=== PATIENT | female | born 1960 | race Caucasian/White ===

== ENCOUNTER 2025-01-04 16:05 | Inpatient (IN) | payer BC, SELFPAY ==
[2025-01-04] VITALS (20 sets, daily range): BP systolic 118–159; BP diastolic 47–142; BMI 31.8
[2025-01-04 11:59] LABS: % Basophils 0.5 % (0-2); % Eosinophils 1.7 % (0-6); % Immature Granulocytes 0.2 % (0-0.5); % Lymphocytes 24.2 % (20.5-51.1); % Monocytes 5.7 % (1.7-9.3); % Neutrophils 67.7 % (42.2-75.2); Absolute Eosinophils 0.1 10^3/uL (0-0.7); Absolute Lymphocytes 1.5 10^3/uL (1.2-3.4); Absolute Monocytes 0.4 10^3/uL (0.1-0.6); Absolute Neutrophils 4.3 10^3/uL (1.4-6.5); Hematocrit 39.5 % (37.0-47.0); Hemoglobin 13.3 g/dL (12.0-16.0); Mean Corp Hgb Conc. 33.7 g/dL (33.0-37.0); Mean Corpuscular Hgb 30.4 pg (27.0-31.0); Mean Corpuscular Volume 90.4 fL (81.0-99.0); Mean Platelet Volume 9.6 fL (7.4-10.4); Nucleated Red Blood Cells % 0 %; Platelet Count 242 10^3/uL (130-400); Red Blood Cell Count 4.37 10^6/uL (4.20-5.40); Red Cell Dist. Width 13.3 % (11.5-14.5); White Blood Cell Count 6.4 10^3/uL (4.8-10.8)
[2025-01-04 12:17] LABS: ALT (SGPT) 22 U/L (0-35); AST (SGOT) 24 U/L (14-36); Albumin 4.6 g/dl (3.5-5.0); Alkaline Phosphatase 115 U/L (38-126); Blood Urea Nitrogen 13 mg/dl (7-17); Calcium 10.3 mg/dl (8.4-10.2); Carbon Dioxide 29 mmol/L (22-30); Chloride 102 mmol/L (98-107); Estimated Creatinine Clearance 110 ml/min; Glucose 278 mg/dl (70-99); Potassium 4.4 mmol/L (3.5-5.1); Sodium 141 mmol/L (135-145); Total Bilirubin 0.7 mg/dl (0.2-1.3); Total Protein 7.6 g/dl (6.3-8.2); eGFR > 60.00
--- NOTE | 2025-01-04 12:20 | ED.GENMED ---
History of Present Illness
General
Chief Complaint: Chest Pain
Source: patient
Exam Limitations: none
Time Seen by Provider: 01/04/25 11:44
Nursing documentation reviewed up to this point in time: agreed with
History of Present Illness
History of Present Illness:
64 yr old female presents to the ER for evaluation. Patient has a history of CAD, stent in 2016 to LAD. She reports he is followed by cardiology in [place] and intermittently since July has had some issues with being short of breath with
activity and fatigue. She had a nuclear stress test several weeks ago which was abnormal and she is scheduled for cardiac cath next week at [facility]. Today however she reports around 1030 this morning she had some burning in
discomfort in her chest and she did not feel right. She did take a total of 4 baby aspirin. She reports she came here to this ER because if she were to need to have a procedure she would want it done at this hospital. She has not been seen by
cardiology here previously.
Her administrative director is DR Malorie Vizcaino [id number].
Review of Systems
Review of Systems
Allergies reviewed?: Yes
All Other Systems: ROS reviewed and negative except as documented in HPI and ROS
Constitutional: Reports no symptoms
Respiratory: Denies trouble breathing
Cardiac: Reports chest pain; Denies diaphoresis, palpitations or syncope
ABD/GI: Reports no symptoms
: Reports no symptoms
Musculoskeletal: Reports no symptoms
Skin: Reports no symptoms
Hematologic/Lymphatic: Reports no symptoms
Psychiatric: Reports no symptoms
Phy Exam
General Physical Exam
General Presentation: no apparent distress
General age: appears stated age
General Skin: warm and dry
General Habitus: normal
General Mental: alert
General Hydration: appears well hydrated
Cardiovascular Exam
Cardiovascular Exam: regular rate/rhythm, no murmur and normal peripheral pulses
Pulmonary Exam
Pulmonary Exam: lungs clear
Neurological Exam
Neurological Exam: alert and oriented x3
[place] Coma Scale
Eye Opening: Spontaneous
Verbal Response: Oriented
Motor Response: Obeys Commands
GCS Total Score: 15
Musculoskeletal Exam
Musculoskeletal Exam: full ROM
Skin Exam
Skin Exam: normal color and warm/dry
Psychiatric Exam
Psychiatric Exam: normal mood/affect
Scores
Heart Score for Chest Pain Patients
STEMI patient?: Not applicable
Course
Orders/Labs/Results
Orders:
Orders
01/04/25 11:46
Electrocardiogram (*1) Urgent
Reason for Study: Shortness of Breath
EKG- Treatment ONCE
01/04/25 11:48
Complete Blood Count/With Diff Urgent
Comprehensive Metabolic Panel Urgent
Glycohemoglobin (HgbA1c) Urgent
Troponin I Urgent
01/04/25 14:24
Electrocardiogram (*1) Stat
Reason for Study: Other
Other Reason for Exam: chest pain
EKG- Treatment ONCE
01/04/25 14:25
Nitroglycerin Sublingual [Nitrostat (Sublingual)] 0.4 mg SL NOW STA
01/04/25 14:27
Troponin I Urgent
01/04/25 14:45
Records Request [Obtain Records] As Directed
Dates of Information to be Released: Most recent
Type of Information Requested: Last Office Visit H&P
ECG/Cardiology Results
Obtain Records from: Malorie Vizcaino MD
01/04/25 14:55
Chest [CR Chest - 2 Views ] Urgent
Comment:
Reason For Exam: cp
01/04/25 15:22
Diphenhydramine [Benadryl] 50 mg IV ONCE ONE
Hydrocortisone Sod Succinate [Solu-Cortef] 200 mg IV STAT STA
01/04/25 15:25
Aspirin Chewable [Low Strength Aspirin] 324 mg PO NOW STA
01/04/25 15:33
Add On- LAB Routine
Tests Added?: Hgba1c
01/04/25 15:52
Admit/Transfer Patient As Directed
Co-Sign Provider:
Level of Care: Observation services
Assign to:: IVU
Physician / Group: Page Camacho
Diagnosis: chest pain
Heparin 4,000 units IV NOW STA
Heparin Protocol- PTT Orders As Directed
PTT per Heparin protocol: -Obtain CBC and baseline PTT - if not already collected.
-Obtain PTT 6 hours from start of infusion. Then, every 6 hours until 2 consecutive
PTT's are therapeutic. Then, PTT Daily.
-With each rate change, obtain PTT every 6 hours until 2 consecutive PTT's are
therapeutic. Then, PTT Daily.
Notify MD As Directed
Notify physician if: PTT is greater than or equal to 200.
PRN Pain Medication Management As Directed
May give lesser potent ordered pain med per pt: Yes
preference::
Protocol:: Medication orders for pain may be administered in a
manner that supports deferring to patient preference
when the pt is:
- Requesting an ordered lesser potent pain medication.
Least to most potent pain medications are defined
as: acetaminophen < NSAID < tramadol < opioids
(morphine, oxycodone, hydromorphone).
- Requesting a lesser dose of the same medication IF
ORDERED.
- Requesting a less intrusive route of administration
if both routes are prescribed by the provider (PO <
IV).
01/04/25 15:54
Code Status As Directed
Resuscitation Status: Full Code
01/04/25 16:00
Heparin 75779 Units/250 ml 25,000 units in 250 ml IV PER PROTOCOL
Weight to be used for heparin protocol in kilograms (kg):: 91.9
Protocol:: Cardiac Tx/Acute Coronary
PTT Goal Range to be used:: PTT 73 to 111 seconds
Order type:: Initial
INITIAL Infusion Dose (UNITS/KG/hr) & then follow protocol:: 12 units/kg/hr
Infusion Dose in UNITS/hr & then follow protocol (UNITS/hr):: 1,000
INFUSION RATE in mL/hr & then follow protocol (mL/hr):: 10
PTT less than or equal to 64 seconds:: Increase rate by 200 units/hr (+ 2 mL/hr)
PTT 64.1 to 72.9 seconds:: Increase rate by 100 units/hr (+ 1 mL/hr)
PTT 73 to 111 seconds:: Target Range. No change in rate.
PTT 111.1 to 130.9 seconds:: Decrease rate by 100 units/hr (- 1 mL/hr)
PTT 131 to 199.9 seconds:: HOLD for 1 hr. Then decrease rate by 200 units/hr (- 2 mL/hr)
PTT greater than or equal to 200 seconds:: HOLD for 2 hrs & Notify Provider. Then decrease by 200 units/hr (-
2 mL/hr)
Lab follow-up:: Each change, PTT q6h until 2 consecutive are therapeutic. Then PTT
daily.
01/04/25 16:28
PTT Urgent
Comment: Obtain baseline before beginning heparin infusion if not already collected
01/04/25 19:30
Hydrocortisone Sod Succinate [Solu-Cortef] 200 mg IV ONCE ONE
01/05/25 06:00
Echo 2D MMode Color/Doppler IN AM
Reason for Study: CAD
Lipid Profile [Cardiovascular Evaluation] IN AM
01/06/25 06:00
Complete Blood Count/No Diff Q2D
Comment: Notify if platelet count is <130,000 or decreases by 50% from baseline
01/08/25 06:00
Complete Blood Count/No Diff Q2D
Comment: Notify MD if platelet count is <130,000 or decreases by 50% from baseline
01/10/25 06:00
Complete Blood Count/No Diff Q2D
Comment: Notify MD if platelet count is <130,000 or decreases by 50% from baseline
01/12/25 06:00
Complete Blood Count/No Diff Q2D
Comment: Notify MD if platelet count is <130,000 or decreases by 50% from baseline
01/14/25 06:00
Complete Blood Count/No Diff Q2D
Comment: Notify MD if platelet count is <130,000 or decreases by 50% from baseline
01/16/25 06:00
Complete Blood Count/No Diff Q2D
Comment: Notify MD if platelet count is <130,000 or decreases by 50% from baseline
01/18/25 06:00
Complete Blood Count/No Diff Q2D
Comment: Notify MD if platelet count is <130,000 or decreases by 50% from baseline
01/20/25 06:00
Complete Blood Count/No Diff Q2D
Comment: Notify MD if platelet count is <130,000 or decreases by 50% from baseline
Abnormal Lab Results
01/04/25
11:48
Glucose 278 H mg/dl
(70-99)
Calcium 10.3 H mg/dl
(8.4-10.2)
01/04/25 11:48
01/04/25 11:48
Vital Signs
Initial and Last Documented VS:
Initial Vital Signs
Temp Pulse Resp BP Pulse Ox
97.3 F 97 16 148/84 100
01/04/25 11:39 01/04/25 11:39 01/04/25 11:39 01/04/25 11:39 01/04/25 11:39
Last Documented Vital Signs
Temp Pulse Resp BP Pulse Ox
97.3 F 78 17 123/73 97
01/04/25 11:39 01/04/25 14:15 01/04/25 14:15 01/04/25 14:35 01/04/25 14:15
Curriculum Writer consulted with Physician
Curriculum Writer consulted with physician?: Yes
Name of Physician Consulted: DR Chen
MDM/Problems Addressed
Differential Diagnosis Includes:
not limited to : ACS
MDM/Problems Addressed:
As documented patient is a 64-year-old female who has cardiac disease including stent in LAD presents for chest discomfort this morning. Patient recently had an abnormal nuclear stress test last week and is scheduled for a cardiac catheterization
at [facility] next week. She came to this emergency department because she wishes to have her care here.
Patient was given 1 nitroglycerin and she complained of mild pressure and burning which did seem to relieve her symptoms.. Her cardiac troponin initially is negative no acute findings on EKG will repeat second troponin however with concerning story
and abnormal recent nuclear stress test Case was discussed with cardiology on-call, Dr. Klein will admit to hospital service . pt took her ASA 81 mg x4 SEO SPECIALIST.
Patient has a nuclear stress test which was abnormal a small sized mild degree of apical reversible perfusion defect suggestive of ischemia. There was EKG changes at 2.[address] depression with exercise stress.
1450:unchanged second EKG
1520: Pt evaluated by cardiology.
Chronic conditions affecting care:
CAD with stent
*Pulse Oximetry
Patient hypoxic: no
*EKG
Interpreted by ED Provider?: Yes
Heart Rate: 85
Rate: normal
Rhythm: sinus
Ischemia: other (repeat ekg unchanged )
*Critical Care Note
Total Time (30-74mins, 75-104mins- exclusive of procedures): Not Applicable
ED Attending Note
-
Portions of this chart may have been created with voice recognition software.� Occasional wrong word or��sound alike� substitutions may have occurred due to the inherent limitations of voice recognition software.
Discharge Plan
Departure
Patient Disposition: Admit
Date of Disposition: 01/04/25
Time of Disposition: 14:51
Admit to: Telemetry
Admit to doctor: hospitalist
Presentation/result/management discussed w/ accepting MD/DO: Hospitalist
Patient with high blood pressure during this ER visit?: Yes
Condition: Fair
Covid-19: Not Applicable
Discharge Problem:
Chest pain
Interventions
Interventions:
*Risk Screen - Suicide Last Done: 01/04/25 11:39
*General Assessment Last Done: 01/04/25 11:39
*Neglect/Abuse Screening Last Done: 01/04/25 11:39
*ED- Fall Risk Assessment Last Done: 01/04/25 11:56
*ED COVID-19 Vaccine History Last Done: 01/04/25 11:39
ED- Cardiac Assessment Last Done: 01/04/25 12:12
[2025-01-04 12:27] LABS: Troponin I 0.017 ng/ml
[2025-01-04] MEDS: NITROSTAT (SUBLINGUAL) 0.4 MG SL (14:30)
[2025-01-04 14:56] LABS: Troponin I 0.018 ng/ml
--- NOTE | 2025-01-04 15:05 | HPS.HSE ---
Family Physician
-
Family Physician: CONRADO YE
Chief Complaint
-
chest pain
History of Present Illness
Patient is a 64-year-old female with past medical history significant for CAD with stent to LAD, DM -II, hyperlipidemia, hypertriglyceridemia and myasthenia gravis who presented to [facility] ED for evaluation of midsternal chest burning with radiation
across entire chest. Patient reports sitting enjoying conversation with a friend when she had acute onset of midsternal chest burning that radiated out over entire chest she reports it was associated with the feeling that she was going to pass out.
She states the burning radiating is new and she has never experienced this before. Patient has been following with cardiology in [place] for intermittent chest discomfort for several months, she recently had a failed nuclear stress test and was scheduled
for a cardiac cath next week. Patient denies any palpitations, shortness of breath, nausea, vomiting or diaphoresis.
Medical History
Past Medical History
Past Medical History: Reports Other
Additional Past Medical History:
CAD
DM - II
hyperlipidemia
hypertriglyceridemia
myasthenia gravis
Past Surgical History: Reports Other
Additional Past Surgical History:
cardiac cath with stent to LAD
cardiac extraction
thymectomy
Social History
Tobacco: Non-smoker
Alcohol: Occasional
Drug: None
Personal: Partner
Living: With Roomate (with partner)
Employment: Retired
Family History
Family History: Other (Mother: CAD, HLD; Father: presumed from [place] (sudden in 60s on tennis court))
Allergies / Home Medications
Allergies reflects when Allergies were last updated in [facility].
Home Medications with original date entered in [facility]
Allergy/Medication List:
Allergies
Allergy/AdvReac Type Severity Reaction Status Date / Time
shellfish derived Allergy Itching Verified 01/04/25 11:55
Home Medications
aspirin 81 mg tablet,delayed release 81 mg PO DAILY 01/04/25
calcium 500 mg (as carbonate)-vitamin D3 10 mcg (400 unit) tablet (Calcium 500 + D) 1 tab PO DAILY 01/04/25
coQ10 (ubiquinol) 100 mg capsule 100 mg PO DAILY 01/04/25
icosapent ethyl 1 gram capsule (Vascepa) 2 g PO BID 01/04/25
metformin 500 mg tablet,extended release 24 hr 1,000 mg PO BID 01/04/25
naproxen sodium 220 mg tablet (Aleve) 220 mg PO [id number] PRN mild pain 01/04/25
rosuvastatin 5 mg tablet (Crestor) 5 mg PO DAILY 01/04/25
therapeutic multivitamin 1 tab PO DAILY 01/04/25
Review of Systems
-
History Source: Patient
Constitutional: Reports No Symptoms
EENT: Reports No Symptoms
Respiratory: Reports No Symptoms
Cardiac: Reports Chest Pain; Denies Syncope (sensation of near syncope )
Abdomen/GI: Reports No Symptoms
: Reports No Symptoms
Musculoskeletal: Reports No Symptoms
Skin: Reports No Symptoms
Neurological: Reports No Symptoms
Endocrine: Reports No Symptoms
Hematologic/Lymphatic: Reports No Symptoms
Psych: Reports No Symptoms
Physical Exam
Vital Signs
Vital Signs
Temp Pulse Resp BP Pulse Ox
97.3 F 78 17 123/73 97
01/04/25 11:39 01/04/25 14:15 01/04/25 14:15 01/04/25 14:35 01/04/25 14:15
Physical Exam
General: Well Developed, Well Nourished, No Apparent Distress, Comfortable, Conversant and Morbidly Obese
HEENT: NormoCephalic, Moist mucous membranes, Atraumatic, [place] Conjunctivae, Nose Appears Normal and Ears Appear Normal
Respiratory: Clear
Cardiac: S1/S2 and Regular Rhythm; No Murmur or Rub
Breast: Deferred by me
GI: Soft, Non Tender, Non Distended and Normal Bowel Sounds; No Organomegaly
Rectal: Deferred by Provider
Genito-urinary: Deferred by me
Musculoskeletal: No Clubbing, No Cyanosis and No Edema
Skin: IV/Catheter Site
Neuro: Awake, Alert, AO x 3 and Nonfocal/grossly intact
Psych: Calm and Intact Judgment/Insight
Laboratory Results
-
01/04/25 11:48
01/04/25 11:48
Laboratory Results
Total Bilirubin 0.7 mg/dl (0.2-1.3) 01/04/25 11:48
AST 24 U/L (14-36) 01/04/25 11:48
ALT 22 U/L (0-35) 01/04/25 11:48
Alkaline Phosphatase 115 U/L (38-126) 01/04/25 11:48
Troponin I 0.018 ng/ml 01/04/25 14:27
Data Reviewed
-
Medical Tests (Nuc Med, Echo, EKG etc): Report Reviewed by me (EKG: NORMAL SINUS RHYTHM WITH SINUS ARRHYTHMIA)
Lab Data: Labs Reviewed by me (Trop 0.017, 0.018)
Impression/Plan
-
IMPRESSION/PLAN:
#chest pain
Trop 0.017, 0.018
EKG: NORMAL SINUS RHYTHM WITH SINUS ARRHYTHMIA
Nuclear stress test 11/2024 with 2 mm downsloping, perfusion with small sized mild degree apical reversible perfusion defect suggestive of ischemia.
- Admit to IVU
- Consult cardiology
- plan for supervisor laboratory animal facility today
#CAD
s/p cardiac cath with stent placement LAD 07/[address] Malorie Vizcaino in [place]
#DM - II
- hold metformin
- AccuCheck AC & HS
- SSI
- check A1c
#hyperlipidemia
- continue rosuvastatin
#hypertriglyceridemia
- continue Vascepa
#myasthenia gravis
s/p thymectomy
has been in remission
Code status: full code
DVT prophylaxis: heparin gtt
--- NOTE | 2025-01-04 15:24 | CON.CAR ---
Addendum entered and electronically signed by Neli Klein MD 01/04/25 15:52:
I saw and examined the patient.
The ENVELOPE STAMPING MACHINE OPERATOR's note was reviewed and I agree with the note.
Comment: 64-year-old female (known to Dr. 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
department with a chief complaint of acute cp this am while sitting on the couch with a friend. It was described as a chest burning, midsternal anterior chest burning. It radiated throughout her body. It was intermittent since 10:30 am. She
reports no prior symptoms at the time to PCI to LAD in the past. She had an abnormal Stress test that was done for decreased exercise tolerance, sob and fatigue with plan for cath in 8 days in [place]. She takes her prescribed medication. She had se
with ozempic and cannot take, she reportss her blood sugar has been difficult to control with various medicaitons. Currently feeling better after receiving SL NTG. On exam she had a normal tomás's test on the right, rrr, no m/r/g, Lungs CTA. ECG NSR
with sinus arrhythmia. She had a trop of0.017. Symptoms c/f ACS. Will start asa and heparin. Will arrange for urgent cath today. Echo. OMT evaluation and treatment post cath as tolerated. Care of DM as per medicine.
Will follow.
Original Note:
Consultation
Consultation Request
Date/Time Consultation Requested: 01/04/2025 14:30
Date/Time Consultation Performed: 01/04/2025 15:00
Requesting Provider: PALAK Patel
Performing Provider: PALAK Shipman for Dr. Klein
Reason for Consultation: Chest pain
Medical History
-
Chief Complaint: Chest burning
History of Present Illness:
Jayleen Cruz is a 64-year-old female (known to Dr. 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
department with a chief complaint of chest burning. This morning she had midsternal anterior chest burning. It radiated throughout her body. She felt warm. She was with a friend who endorsed her pallor. She had an abnormal nuclear stress test.
This was prompted by feeling weak, fatigue, and shortness of breath while hiking in [place]. Initially, she attributed those sensations to altitude sickness but she has been feeling unwell with activity at home. She had chest discomfort in the
ER. She got full relief with 1 sublingual nitroglycerin. She had PCI to her LAD in 2015. This was found on abnormal stress testing. She had no symptoms.
Past Medical History
Past Medical History: CAD (LAD PCI 2015), Hypercholesterolemia, NIDDM and Other (Myasthenia gravis, PAD)
Past Surgical History: and Other (Thymectomy)
Social History
Tobacco: Former Smoker (socially in college)
Personal:
Living: With Family
Employment: Retired
Family History
Family History: Reviewed & Not Pertinent
Allergies / Home Medications
Allergy/AdvReac Type Severity Reaction Status Date / Time
shellfish derived Allergy Itching Verified 01/04/25 11:55
�Medication �Instructions �Recorded �Confirmed �Type
metformin 500 mg tablet,extended 500 mg PO BID 01/04/25 01/04/25 History
release 24 hr
Review of Systems
-
History Source: Patient
All other systems: Negative unless noted
Constitutional: Fatigue
EENT: No Symptoms
Respiratory: No Symptoms
Cardiac: Chest Pain
Abdomen/GI: No Symptoms
: No Symptoms
Musculoskeletal: No Symptoms
Skin: No Symptoms
Neurological: Weakness
Endocrine: No Symptoms
Hematologic/Lymphatic: No Symptoms
Physical Exam
Vital Signs
Temp Pulse Resp BP Pulse Ox
97.3 F 78 17 123/73 97
01/04/25 11:39 01/04/25 14:15 01/04/25 14:15 01/04/25 14:35 01/04/25 14:15
Lab Results
01/04/25 11:48
01/04/25 11:48
Troponin I 0.018 ng/ml 01/04/25 14:27
Physical Exam
General: Well Developed, Well Nourished, No Apparent Distress and Comfortable
HEENT: Normocephalic, Anicteric and Moist Mucous Membranes
Respiratory: Clear and Non Labored Respirations
Cardiac: S1/S2, Regular Rhythm and Peripheral Edema
Breast: Deferred by me
GI: Soft, Non Tender, Non Distended and Normal Bowel Sounds
Rectal: Deferred by Provider
Genito-urinary: No Costovertebral Tender
Musculoskeletal: No Clubbing, No Cyanosis and No Edema
Skin: Warm and Dry
Neuro: AO x 3
Hematologic/Lymphatic: No Lymphadenopathy
Psych: Calm
Impression / Plan
-
I/P: 64F with CAD, dyslipidemia, NIDDM, MG, and PAD who presented to the emergency department with a chief complaint of chest burning.
Outpatient Shotblast Operator: Dr. Malorie Vizcaino, records have been formally requested
Unstable Angina
- Nuclear stress test 11/2024 with 2 mm downsloping, perfusion with small sized mild degree apical reversible perfusion defect suggestive of ischemia.
- ASA 324 mg now, ASA 81 mg indefinitely
- Echocardiogram
- Cardiac catheterization today, pre-treatment ordered
CAD
- PCI to 90% stenosis of the mid LAD in 2015, she was asymptomatic
- Continue medical management
Dyslipidemia
- LDL 58 on rosuvastatin, increase for goal of LDL <55
Myasthenia gravis, full remission, prior thymectomy
NIDDM, outpatient HgbA1c 8.6% (08/2024), HgbA1c in a.m.
PAD, moderate plaque in the right and left lower extremities with hemodynamically significant stenosis (11/2024)
Data Reviewed
-
EKG: Report Reviewed by me (Sinus rhythm, sinus arrhythmia, rate 76)
Labs: Labs Reviewed by me
Old Records: Requested and Reviewed
[2025-01-04] MEDS: LOW STRENGTH ASPIRIN 324 MG PO (15:50)
[2025-01-04] MEDS: BENADRYL 50 MG IV (15:51)
[2025-01-04] MEDS: SOLU-CORTEF 200 MG IV (15:51)
--- NOTE | 2025-01-04 16:05 | W.PN.UPDATE ---
Update Note
Progress Note Update
This is an addendum to H&P written by Faina Morales on 01/04/2025. Patient seen and examined independently with ROBOTICS SOFTWARE ENGINEER.
64-year-old female past medical history of CAD status post stents, PAD, diabetes, hyperlipidemia, myasthenia gravis status post thymectomy, presenting with chest pain starting this morning described as burning midsternal without radiation. Has been
having intermittent episodes of chest pain associate with shortness of breath over the past month for which she was seeing data sciences director in [place]. She recently had a nuclear stress test which was abnormal and cardiac catheterization was
recommended next week.
Labs unremarkable. Glucose of 278.
Troponin 0.017. EKG shows normal sinus rhythm, sinus arrhythmia.
Chest pain improved with nitroglycerin.
Patient with likely unstable angina. N.p.o. for Posting Machine Operator later today. Aspirin and heparin drip started. A1c and lipid panel pending. Patient to be given hydrocortisone and Benadryl due to shellfish allergy prior to receiving IV contrast for
catheterization.
Trend troponins, echocardiogram pending.
Hold metformin. Insulin sliding scale started.
[2025-01-04] MEDS: HEPARIN 4000 UNITS IV (16:40)
[2025-01-04] MEDS: HEPARIN 25000 UNITS/250 ML IV (16:44)
[2025-01-04 16:48] LABS: APTT 31.4 Sec (23.4-35.0)
[2025-01-04 18:51] LABS: ACT-LR - POC 345 Seconds (116-155)
[2025-01-04 19:17] LABS: ACT-LR - POC 322 Seconds (116-155)
--- NOTE | 2025-01-04 19:59 | ITS.CL.PN ---
Branch [facility] - Procedure Note
Procedure
Procedure Note:
CARDIAC CATHETERIZATION REPORT
Date of Procedure: 01/04/2025
Referring: Dr. Neli Klein MD
Indication: NSTEMI
PROCEDURE(S)
1. left heart catheterization
2. coronary angiography
3. IVUS LAD
4. Shockwave lithotripsy LAD
5. PCI with PETROS to LAD
ACCESS: 6F right radial artery (closure: radial band)
CATHETERS
1. 6F JR4
2. 6F JL3.5
3. 6F EBU3.5 guide catheter
MODERATE SEDATION: 60 minutes of moderate sedation was utilized. An independent medical payment poster was present to assist with and help manage the patient's level of consciousness and physiologic status.
HEMODYNAMIC DATA
LV 138/8 (EDP 12) mmHg
AO 135/81 (mean 106) mmHg
CORONARY ANGIOGRAPHY
Dominance: Right
LM: Large, normal
LAD: Large vessel giving rise to a small D1 and moderate caliber D2. There is mild tubular disease in the proximal vessel leading up to a stent with mild ISR. There is a focal 95% stenosis distal to the previously placed stent.
LCx: Large vessel giving rise to a small OM1, large OM2, and 2 small LPL branches. There are trivial luminal irregularities only
RCA: Large vessel giving rise to a moderate caliber RPDA. There is very mild narrowing at the ostium with no pressure dampening and normal contrast reflux.
Shockwave lithotripsy facilitated, IVUS guided PCI with DESx1 to mid LAD
Heparin was administered to achieve ACT greater than 300. A Runthrough wire was placed in the LAD apex. Initial lesion preparation was performed with a 2.0x12 balloon with adequate expansion. IVUS was performed demonstrating a 2.75 mm distal
reference vessel, 3.5 mm reference vessel proximal to the prior stent and evidence of underexpansion due to calcium of the prior stent with MLA 3.5 mm�. The decision was made to stent both the new lesion as well as the previously stented segment to
achieve better stent expansion. A 2.75 x 34 mm [place] frontier drug-eluting stent was delivered and deployed at 16 arlet. There was noted to be underexpansion in the area of stent overlap. A 3.5.15 mm NC balloon was delivered and inflated to
high-pressure with adequate but suboptimal expansion observed angiographically. The decision was made to proceed with Shockwave lithotripsy within the under expanded previously stented segment, now with two layers of stent. A 3.5x12 mm Shockwave
lithotripsy balloon was delivered with 120 total pulses at 4 arlet to the area of stent overlap. Post dilation was then performed with the 3.5 mm NC taken to 20 arlet. Final IVUS demonstrated excellent proximal and distal distal stent sizing and no edge
dissections. There was mild underexpansion within the area of overlap stent and modestly improved MLA compared to prior. The patient experienced chest pain predictably during balloon inflations in the LAD but none at the end of the case. Radial
hemostasis was achieved with a TR band. She was loaded with 60 mg prasugrel in the [facility] and admitted for observation.
RADIATION: dose 989.65 mGy; DAP 83.8007 Gy*cm2; fluoroscopy time 16.3 min
CONCLUSIONS
1. Coronary artery disease as described with culprit 95% mid LAD stenosis and evidence of underexpansion of the previously placed stent due to calcium.
2. Normal LV filling pressure no aortic stenosis
3. Successful IVUS guided PCI of the mid LAD with Shockwave lithotripsy to treat the previously under-expanded stent segment and PETROS x 1 (2.75x34 mm postdilated to high-pressure with a 3.5 mm NC balloon sparing the distal edge)
RECOMMENDATIONS
1. DAPT with aspirin and prasugrel for at least 1 year
2. Aggressive secondary prevention of coronary artery disease.
3. Should the patient require additional interventions to her LAD, given her young age, diabetic status, and presence of two layers of stent, it may be prudent at that point to consider coronary artery bypass grafting.
Copy to: Dr. Malorie Vizcaino MD (auxiliary powerplant operator); Dr. Don Gee MD (PCP)
Signed: Raymond Moise MD, PhD
[2025-01-04] MEDS: NSS 1000 IV (20:42)
--- NOTE | 2025-01-04 21:24 | PTCARENOTE ---
Received pt from curb and gutter laborer @ 2009. AAOx3. VSS. Sequence pressures set, pulse ox on right finger. Radial band intact with 12 cc air. Right radial site clean, dry, and intact. No ecchymosis, soft to touch. Denies chest pain. EKG completed, trops drawn,
IV fluids running through right AC @ 150 mL/hr. Discussed letting air out of band, calling with any new chest pain and not getting out of bed without RN. Pt verbalized understanding. Call montano within reach.
[2025-01-04 21:56] LABS: Troponin I < 0.012 ng/ml
[2025-01-04 22:18] LABS: Glucose - Point of Care 399 mg/dl (70-99)
[2025-01-04] MEDS: NOVOLOG FLEXPEN-LOW RESISTANCE 5 UNITS SC (23:13)
[2025-01-05 03:32] VITALS: BP 128/72
[2025-01-05 03:50] VITALS: BMI 30.6
[2025-01-05 03:58] LABS: Hematocrit 34.3 % (37.0-47.0); Hemoglobin 11.7 g/dL (12.0-16.0); Mean Corp Hgb Conc. 34.1 g/dL (33.0-37.0); Mean Corpuscular Hgb 30.1 pg (27.0-31.0); Mean Corpuscular Volume 88.2 fL (81.0-99.0); Mean Platelet Volume 9.3 fL (7.4-10.4); Platelet Count 238 10^3/uL (130-400); Red Blood Cell Count 3.89 10^6/uL (4.20-5.40); Red Cell Dist. Width 13.4 % (11.5-14.5); White Blood Cell Count 7.2 10^3/uL (4.8-10.8)
[2025-01-05 04:15] LABS: Blood Urea Nitrogen 17 mg/dl (7-17); Calcium 9.2 mg/dl (8.4-10.2); Carbon Dioxide 24 mmol/L (22-30); Chloride 108 mmol/L (98-107); Estimated Creatinine Clearance 108 ml/min; Glucose 166 mg/dl (70-99); HDL Cholesterol 76 mg/dl; LDL Cholesterol, Calculated 33 mg/dl; Potassium 4.4 mmol/L (3.5-5.1); Sodium 140 mmol/L (135-145); Total Cholesterol 130 mg/dl (50-199); Triglyceride 109 mg/dl (10-149); Very Low Density Lipoprotein 21 mg/dl (0-30); eGFR > 60.00
[2025-01-05 07:36] VITALS: BP 136/61
[2025-01-05 07:39] LABS: Glucose - Point of Care 152 mg/dl (70-99)
[2025-01-05] MEDS: FLUSH (NSS) 1 FLUSH IV (08:33)
[2025-01-05] MEDS: OSCAL 500 + D 500 MG PO (08:33)
[2025-01-05] MEDS: CRESTOR 20 MG PO (08:33)
[2025-01-05] MEDS: LOW STRENGTH ASPIRIN 81 MG PO (08:33)
[2025-01-05] MEDS: THERAGRAN 1 TABLET PO (08:33)
[2025-01-05 09:19] LABS: Glycohemoglobin (HgbA1c) 7.7 % (4.0-5.6)
[2025-01-05] MEDS: NOVOLOG FLEXPEN-LOW RESISTANCE 1 UNITS SC ×2 (09:20→12:47)
--- NOTE | 2025-01-05 09:41 | W.PN.CD ---
Addendum entered and electronically signed by Garrick Key DO 01/05/25 11:34:
Correction - DAPT with aspirin and prasugrel x 12 months, followed by aspirin indefinitely.
Original Note:
Today's Communication / Plan
-
Echocardiogram.
Restart metformin.
Discharge planning.
Impression / Plan
-
Impression/Plan: 64F with CAD, dyslipidemia, NIDDM, MG, and PAD admitted with unstable angina.
#Unstable Angina/CAD
-Acute.
-Nuclear stress test 11/20[address] segments, perfusion with small sized mild degree apical reversible perfusion defect suggestive of ischemia.
-S/P IVUS guided PCI to 95% focal LAD stenosis and underexpanded prior LAD stent ([employer] Grethel Guadalupe 2.75 x 34 PETROS) with post hoc intracoronary lithotripsy (Shockwave 3.5 x 12 IVL balloon).
-DAPT with aspirin and ticagrelor for at least 12 months, followed by aspirin indefinitely.
-Rosuvastatin increased to 20 mg daily.
-Echocardiogram pending.
#Dyslipidemia
-Chronic, stable.
-Total cholesterol = 130, LDL = 33, HDL = 76, Triglycerides = 109
-Rosuvastatin increased to 20 mg daily given ACS.
-Restart icosapent ethyl at discharge.
#Myasthenia gravis
-Chronic, full remission.
-Prior thymectomy.
#NIDDM
-Chronic, uncontrolled.
-HgbA1c 7.7%.
-Restart metformin.
#PAD
-Chronic, stable.
-Moderate plaque in the right and left lower extremities with hemodynamically significant stenosis (11/2024).
-Statin.
#Dispo
-IVU status.
-Full code.
-Discharge planning pending echo results.
Outpatient Software Developer Manager: Dr. Malorie Vizcaino, records have been formally requested.
Subjective/Interval History:
Cardiac catheterization/PCI yesterday.
BP is mildly elevated.
She feels well.
DATA:
Cardiac Catheterization/PCI, 01/04/2025:
CORONARY ANGIOGRAPHY
Dominance: Right
LM: Large, normal
LAD: Large vessel giving rise to a small D1 and moderate caliber D2. There is mild tubular disease in the proximal vessel leading up to a stent with mild ISR. There is a focal 95% stenosis distal to the previously placed stent.
LCx: Large vessel giving rise to a small OM1, large OM2, and 2 small LPL branches. There are trivial luminal irregularities only.
RCA: Large vessel giving rise to a moderate caliber RPDA. There is very mild narrowing at the ostium with no pressure dampening and normal contrast reflux.
CONCLUSIONS
1. Coronary artery disease as described with culprit 95% mid LAD stenosis and evidence of underexpansion of the previously placed stent due to calcium.
2. Normal LV filling pressure no aortic stenosis.
3. Successful IVUS guided PCI of the mid LAD with Shockwave lithotripsy to treat the previously under-expanded stent segment and PETROS x 1 (2.75x34 mm postdilated to high-pressure with a 3.5 mm NC balloon sparing the distal edge).
Physical Exam
Vital Signs/Labs
Vital Signs
Temp Pulse Resp BP Pulse Ox
36.8 C 75 18 136/61 98
01/05/25 07:46 01/05/25 09:15 01/05/25 07:46 01/05/25 07:36 01/05/25 09:13
01/03/25 01/04/25 01/05/25
11:59 11:59 11:59
Actual Weight 88.4 kg
01/05/25 03:36
01/05/25 03:36
APTT Cancelled 01/04/25 22:45
Triglycerides 109 mg/dl (10-149) 01/05/25 03:36
LDL Cholesterol, Calc 33 mg/dl 01/05/25 03:36
VLDL Cholesterol, Calc 21 mg/dl (0-30) 01/05/25 03:36
HDL Cholesterol 76 mg/dl 01/05/25 03:36
LAB Results
01/04/25 01/04/25 01/04/25
11:48 14:27 20:07
Troponin I 0.017 0.018 Cancelled
01/04/25 01/04/25 01/05/25
20:37 23:07 02:00
Troponin I < 0.012 D Cancelled Cancelled
01/05/25
08:00
Troponin I Cancelled
Physical Exam
Constitutional: No acute distress and Comfortable
EENT: Anicteric and Moist mucous membranes
Cardiovascular: Rhythm & rate is regular, Pedal edema is absent, JVD pressure is normal, S1S2 is normal and Murmur/rub/gallop absent
Respiratory: Respiratory effort normal, Lungs clear to auscul., Wheeze Absent, Crackles Absent and Rhonchi Absent
GI: Soft, Distention absent, Flat, Non tender and Normal bowel sounds
Neuro/Psych: AO x 3
Data Reviewed
-
Date of Service: January 05, 2025
Medical Decision Making: Reviewed Test Results, Independent Historian Assessment and Test Interpretation
EKG: Tracing Personally Visualized and interpreted and Report Reviewed by me
Echo: Ordered by me
X-Ray/CT/US/MRI/NUC/PET: Image Personally Visualized and interpreted and Report Reviewed by me
Medical Tests (PFT, Pathology etc): Image Personally Visualized and interpreted, Report Reviewed by me, Discussed with Patient and Discussed with Family
Labs: Labs Reviewed by me
--- NOTE | 2025-01-05 09:52 | PTCARENOTE ---
Received pt at change of shift in AM. pt laying in bed, denies chest pain or SOB. NSR in the 70s on the monitor. Right radial site dry and intact. Educated pt on not pushing up with that right arm. Verbalized understanding. Pt ambulating in room ad
gabriel. Call montano within reach.
[2025-01-05] MEDS: EFFIENT 10 MG PO (10:09)
--- NOTE | 2025-01-05 11:02 | CM ---
Pricing on Effient through the patient's [employer], ID# [id number], is non preferred. Prasugrel is covered under the plan at $5 a month.
--- NOTE | 2025-01-05 11:52 | W.PN.HOSP.TC ---
Addendum entered and electronically signed by Louie Mehta MD 01/05/25 14:57:
Discussed with Dr. Key echo normal okay for discharge.
More than 30 minutes spent in discharge including
Final examination of the patient
Summarizing hospital stay
Instructions for continuing care to all relevant caregivers
Preparation of discharge records, prescriptions, and referral forms
Total time spent (in minutes): 45
Original Note:
Today's Communication/Plan
-
DAPT
ECHO
Cards recs
start dispo
Assessment / Plan
Assessment / Plan
Unstable angina
CAD
Status post cardiac catheterization with PETROS to LAD
Status post heparin therapy
Started on aspirin and prasugrel
Continue with statin
Restart metformin per cardiology
Echocardiogram is pending
#DM - II
- Restart metformin
- AccuCheck AC & HS
- SSI
- check A1c at 7.7. Per patient is downtrending and due to see area forester as outpatient
#hyperlipidemia
- continue rosuvastatin
#hypertriglyceridemia
- continue Vascepa
#myasthenia gravis
s/p thymectomy
has been in remission
#PAD
-on statin/DAPT already
Code status: full code
Anticipated Discharge: Today
Subjective/Interval History
-
Date of Service: January 05, 2025
Undergoing ECHO
denies chest pain but states of chest burning -significant improvement since yesterday
Objective Data
-
Labs:
Laboratory Results
01/05/25
03:36
WBC 7.2
Hgb 11.7 L
Hct 34.3 L
Plt Count 238
Sodium 140
Potassium 4.4
Chloride 108 H
Carbon Dioxide 24
BUN 17
Creatinine 0.6
Glucose 166 H
Calcium 9.2
Vital Signs:
Vital Signs
Temp Pulse Resp BP Pulse Ox
98.2 F 79 18 136/61 98
01/05/25 07:46 01/05/25 11:45 01/05/25 07:46 01/05/25 07:36 01/05/25 09:13
Physical Exam
-
General: Well Developed and No Apparent Distress
HEENT: Normocephalic, Atraumatic and Moist Mucous Membranes
Respiratory: Non Labored Respirations; Negative Accessory Resp Muscle Use
Cardiac: Regular Rhythm; Negative Murmur, Rub or Gallop
GI: Nondistended; Negative Organomegaly
Rectal: Deferred by Provider
Musculoskeletal: No Edema
Skin: Negative Rash
Neuro: Awake, Alert, Oriented, AO x 3, No Motor Deficits and Nonfocal/Grossly Intact
Psych: Calm
--- NOTE | 2025-01-05 11:56 | CM ---
Chart reviewed. Patient is independent of ADLS, lives with her SO in a 2 [address], 3 ROC[facility]O, 0 DME. Plan is for the patient to return home. CM to follow
[2025-01-05 12:09] VITALS: BP 134/77
[2025-01-05 12:45] LABS: Glucose - Point of Care 185 mg/dl (70-99)
--- NOTE | 2025-01-05 14:56 | W.DCSUMMARY ---
Discharge Summary
Discharge Data
Date of Admission: 01/04/25
Date of Discharge: 01/05/25
-
Pending Results: No
Hospital Course
64 female past medical history of hyperlipidemia, synovitis, hypertriglyceridemia, CAD who is presented with chest pain. Patient was found to unstable angina. Patient was started on heparin infusion. Patient was seen cardiology and underwent
cardiac catheterization on admission day. Patient underwent PETROS to LAD. Patient was statin dose was increased. Aspirin was continued and prasugrel was added. Dual antiplatelet agents for 12 months minimum. Per cardiology okay to restart
metformin. Discussed with Dr. Garrick Key echocardiogram with normal and patient can be discharged. Patient with to follow-up outpatient with primary doctor and cardiology.
Discharge Plan
-
Patient Disposition: Home (Routine Discharge)
Discharge Diagnosis/Procedures: Unstable angina status post cardiac catheterization with PETROS to LAD
Condition: Fair
Diet: Low Cholesterol
Driving Restrictions: No driving for 24 hours
Activity Restrictions/Additional Instructions:
DAPT with aspirin and Prasugrel for at least 12 months, followed by aspirin indefinitely.
Referrals:
[facility] [Other] - in less than 1 week
[facility] [Outside] - 02/01/25 1:00 pm
(Cardiac Rehab Orientation appointment is on Saturday February 01, 2025 @ 1:00pm
The Cardiac Rehab gym is located on the first floor of the [facility].)
Additional Discharge Medication Instructions: Crestor dose has been increased to 20mg from 5mg daily.
Prescriptions:
New
rosuvastatin 20 mg Tablet
20 mg PO DAILY 30 Days Qty: 30 0RF
prasugrel HCl 10 mg Tablet
10 mg PO DAILY Qty: 30 0RF
Continued
metformin 500 mg Tablet Extended Release 24 Hr
1,000 mg PO BID
therapeutic multivitamin Tablet
1 tab PO DAILY
aspirin 81 mg Tablet,Delayed Release (Dr/Ec)
81 mg PO DAILY
calcium carbonate-vitamin D3 [Calcium 500 + D] 500 mg-10 mcg (400 unit) Tablet
1 tab PO DAILY
coQ10 (ubiquinol) 100 mg Capsule
100 mg PO DAILY
icosapent ethyl [Vascepa] 1 gram Capsule
2 g PO BID
Discontinued
naproxen sodium [Aleve] 220 mg Tablet
220 mg PO [id number] PRN (Reason: mild pain)
rosuvastatin [Crestor] 5 mg Tablet
5 mg PO DAILY
Discharge Orders:
Discharge Patient (As Directed); Ordered 01/05/25
Ordered By: Louie Mehta
Care Plan Goals
Care Plan Goals:
Problem: Readiness for enhanced knowledge related to diagnosis and treatment plan
Goal: Understand your diagnosis and treatment plan needs, including medications if applicable.
Instructions: Know your diagnosis, underlying causes and treatment plan options, including medications if applicable. Consult with your health care team to learn about your diagnosis and treatment plan, including medications if applicable.
Discharge Date and Time
Discharge Date/Time: 01/05/25 16:00
Print Language: PARAGUAYAN
[2025-01-05 15:41] VITALS: BP 147/77
--- NOTE | 2025-01-05 15:59 | PTCARENOTE ---
Discharge instructions reviewed w/ pt and spouse and verbalizes understanding. IV and tele removed. Belongings collected and sent home w/ pt. Escorted via WC and staff assist to home. Discharged to home.
== END 2025-01-05 16:00 | disposition home or self-care (01) | DRG 324 ==
LOC: IVU 16:05
PROVIDERS: Nurse Practitioner; Nurse Practitioner Gerontology; Student in an Organized Health Care Education/Training Program; ADMITTING PHYSICIAN Hospitalist; ATTENDING PHYSICIAN Hospitalist; CONSULT PHYSICIAN Internal Medicine Cardiovascular Disease; EMERGENCY PHYSICIAN Emergency Medicine
PROC: B2111ZZ Fluoroscopy of Multiple Coronary Arteries using Low Osmolar Contrast (ICD-10-PCS; 2025-01-04)
PROC: 027034Z Dilation of Coronary Artery, One Artery with Drug-eluting Intraluminal Device, Percutaneous Approach (ICD-10-PCS; 2025-01-04)
PROC: B240ZZ3 Ultrasonography of Single Coronary Artery, Intravascular (ICD-10-PCS; 2025-01-04)
PROC: 02F03ZZ Fragmentation in Coronary Artery, One Artery, Percutaneous Approach (ICD-10-PCS; 2025-01-04)
PROC: 4A023N7 Measurement of Cardiac Sampling and Pressure, Left Heart, Percutaneous Approach (ICD-10-PCS; 2025-01-04)
DX: I25.110 Atherosclerotic heart disease of native coronary artery with unstable angina pectoris (principal); R03.0 Elevated blood-pressure reading, without diagnosis of hypertension; E11.9 Type 2 diabetes mellitus without complications; E78.00 Pure hypercholesterolemia, unspecified; E78.1 Pure hyperglyceridemia; G70.00 Myasthenia gravis without (acute) exacerbation; I73.9 Peripheral vascular disease, unspecified; R23.1 Pallor; Z87.891 Personal history of nicotine dependence; Z91.013 Allergy to seafood; Z79.84 Long term (current) use of oral hypoglycemic drugs; Z95.5 Presence of coronary angioplasty implant and graft; Z82.49 Family history of ischemic heart disease and other diseases of the circulatory system; Z82.41 Family history of sudden cardiac death; Z79.82 Long term (current) use of aspirin
CPT/HCPCS: 71046; 80048; 80053; 80061; 82962; 83036; 84484; 85025; 85027; 85347; 85730; 92972; 92978; 93005; 93306; 93458; 96374; 96375; 96376; 99152; 99153; 99285; C1725; C1753; C1761; C1874; C1894; C9600; Q9967

== ENCOUNTER 2025-04-30 20:03 | Inpatient (IN) | payer BC, SELFPAY ==
[2025-04-30] VITALS (35 sets, daily range): BP systolic 115–182; BP diastolic 61–151; BMI 29.3; BMI 28.5
[2025-04-30 17:23] LABS: Hematocrit 36.9 % (37.0-47.0); Hemoglobin 12.5 g/dL (12.0-16.0); Mean Corp Hgb Conc. 33.9 g/dL (33.0-37.0); Mean Corpuscular Volume 85.8 fL (81.0-99.0); Nucleated Red Blood Cells % 0 %; Platelet Count 261 10^3/uL (130-400); Red Cell Dist. Width 13.8 % (11.5-14.5)
[2025-04-30 17:40] LABS: ALT (SGPT) 17 U/L (0-35); AST (SGOT) 23 U/L (14-36); Albumin 4.5 g/dl (3.5-5.0); Alkaline Phosphatase 84 U/L (38-126); Blood Urea Nitrogen 25 mg/dl (7-17); Calcium 9.8 mg/dl (8.4-10.2); Carbon Dioxide 26 mmol/L (22-30); Chloride 109 mmol/L (98-107); Glucose 124 mg/dl (70-99); Magnesium 1.9 mg/dl (1.6-2.3); Potassium 4.0 mmol/L (3.5-5.1); Sodium 143 mmol/L (135-145); Total Protein 7.2 g/dl (6.3-8.2); eGFR > 60.00
[2025-04-30] MEDS: NSS 500 IV (17:56)
[2025-04-30 17:57] LABS: Troponin I 0.470 ng/ml
[2025-04-30] MEDS: NITROSTAT (SUBLINGUAL) 0.4 MG SL (17:57)
--- NOTE | 2025-04-30 18:15 | ED.GENMED ---
History of Present Illness
General
Chief Complaint: Chest Pain
Source: patient and spouse
Time Seen by Provider: 04/30/25 17:01
History of Present Illness
History of Present Illness:
Note:
CHIEF COMPLAINT(S)
Chest pain and arm pain worsened by exertion, relieved by nitroglycerin use.
HISTORY OF PRESENT ILLNESS
The patient is a 64-year-old female with a history of cardiac catheterization performed in December. Following the procedure, the patient felt well and went on a [id number]-week trip to [place], during which she was able to walk eight miles a day in
high temperatures without issue. However, approximately two weeks ago during a stay in [place], she experienced severe, unprecedented chest pain while attempting to ascend a hill. Since that episode, the patient has reported persistent chest
pain both during physical activity and at rest. She has been using nitroglycerin, previously prescribed during cardiac rehabilitation for an incident deemed angina, twice daily with partial relief. The nitroglycerin resolves the symptoms
temporarily, though they recur shortly after.
She describes the current chest pain as low-grade but notes that exertion induces more intense pain, radiating to her arms and occasionally her jaw. Currently, she is experiencing low-level, constant chest pain with no acute exacerbation. Her
cardiology team at an outside Cardiology group advised her to seek care at this facility. She relays that previous catheterization noted a potential need for bypass or further stent intervention due to lesions in the left anterior descending artery
(LAD).
ADDITIONAL HISTORY OBTAINED FROM SOURCES OTHER THAN THE PATIENT
Per the patients son-in-law, a cardiac nurse, the patients use of nitroglycerin has become more frequent, indicating escalating symptoms.
CHRONIC MEDICAL CONDITIONS SIGNIFICANTLY AFFECTING CARE
The patient has a history of diabetes and coronary artery disease, with medication management including aspirin and clopidogrel.
PLAN
1. Repeat cardiac enzyme levels due to persistent chest pain to assess for potential acute coronary syndrome.
2. Review previous catheterization report in detail and contact the cardiology team for collaboration on further management.
3. Consider repeating electrocardiograms to monitor for changes from baseline or any acute ischemic indications.
4. Develop a comprehensive cardiac care plan in alignment with her symptoms, risk factors, and cardiology consultation findings.
DIFFERENTIAL DIAGNOSIS
The Differential Diagnosis includes, in no particular order and is not limited to:
1. Unstable angina
2. Myocardial infarction
3. Coronary artery spasm
4. Gastroesophageal reflux disease (GERD)
5. Musculoskeletal chest pain
6. Pulmonary embolism
7. Pericarditis
8. Costochondritis
9. Anxiety-induced chest pain
10. Non-cardiac chest pain
MEDICATIONS
The patient reports taking aspirin, clopidogrel (Plavix), and metformin for diabetes.
REVIEW OF SYSTEMS
- Cardiovascular: Chest pain exacerbated by exertion, radiating to arms and jaw.
- Musculoskeletal: Pain radiating to both arms.
- Neurological: Occasionally experiences jaw pain during episodes of cardiac-type pain.
PHYSICAL EXAM
General: Alert, no acute distress.
Skin: Warm, dry.
Head: Normocephalic, atraumatic.
Neck: Supple, trachea midline.
Eye, Ear, Nose, and Throat: Oral mucosa moist.
Cardiovascular: Normal peripheral perfusion, No edema.
Respiratory: Respirations are non-labored.
Gastrointestinal: Abdomen nondistended.
Back: Normal range of motion, Normal alignment.
Musculoskeletal: Normal range of motion, normal strength.
Neurological: Alert and oriented to person, place, time, and situation, No focal neurological deficit observed.
Psychiatric: Cooperative, appropriate mood & affect.
CARE-UPDATE
04/30/25 - 17:57
The patient previously had a cardiac catheterization in December 2024, which revealed stenosis in the left anterior descending (LAD) artery.
CARE-UPDATE
04/30/25 - 17:58
Troponin level is elevated to 0.4, prompting concern for acute coronary syndrome due to persistent chest pain. Repeat EKG reveals T-wave inversion and anterior changes.
CARE-UPDATE
04/30/25 - 18:14
Patients chest pain resolved after administration of sublingual nitroglycerin. Initiated nitroglycerin drip and heparin drip for continued management.
Disposition:
SUMMARY OF ENCOUNTER
The patient, with a known difficult lesion in the left anterior descending (LAD) artery as confirmed from an [facility] cardiac catheterization, presented to the emergency department with progressively worsening chest pain. Although the chest pain
resolved while in the emergency room, electrocardiograms (EKGs) showed concerning T-wave inversions. A troponin level of 0.47 ng/mL suggested non-ST segment elevation myocardial infarction (NSTEMI). The case was reviewed with Dr. Valdez from
cardiology, who recommended continuation of intravenous nitroglycerin for pain relief and admission for further management. Also initiate IV heparin
DISPOSITION
Admit
ASSESSMENT
Acute coronary syndrome, specifically NSTEMI related to challenging LAD lesions.
EMERGENCY TREATMENTS ADMINISTERED
Administration of IV nitroglycerin and IV heparin
MANAGEMENT OF THE PATIENTS CARE WAS DISCUSSED WITH
Dr. Valdez from cardiology.
PLAN
Continue IV nitroglycerin and IV heparin, admit for further cardiology evaluation and treatment planning.
INDEPENDENT REVIEW OF LABS AND INTERPRETATION OF TESTS
- My independent review of cardiac enzymes is that the troponin level was 0.47 ng/mL, indicative of myocardial injury in the setting of a possible NSTEMI.
ADDITIONAL TESTING AND IMAGING CONSIDERED
Repeat EKGs considered to monitor for changes in T-wave inversions.
MEDICATION RECONCILIATION
Initiation of intravenous heparin therapy was done. In addition, intravenous nitroglycerin was commenced.
MEDICAL DECISION MAKING
- Number and Complexity of Problems Addressed: Chronic conditions affecting care: History of coronary artery disease, LAD lesion.
Differential Diagnosis: Unstable angina, NSTEMI, coronary artery spasm, and other conditions as listed previously.
- Data:
Category 1: Repeat EKGs reviewed showing T-wave inversions.
Category 2: Clinical information obtained from the son-in-law, who is a cardiac nurse, indicating increased frequency of nitroglycerin usage.
Category 3: Management discussed with Dr. Dean from cardiology.
- Risk: Admission was considered necessary due to the elevated troponin levels and EKG changes suggesting active and potentially unstable coronary artery disease, necessitating further evaluation and management.
DIAGNOSIS
1. Non-ST Elevation Myocardial Infarction (NSTEMI) - I21.4
2. Coronary artery disease - I25.10
Phy Exam
Physical Exam
Physical Exam:
.
Scores
Heart Score for Chest Pain Patients
STEMI patient?: No
History: Highly Suspicious
ECG: Nonspecific Repolarization
Age: >45 - <65 years
Risk Factors: >/= 3 Risk Factors or History of CAD
Troponin: >/= 3 x Normal Limit
Heart Score for Chest Pain Patients: 8
Heart Score Risk: 72.7 % MACE over next 6 weeks
Course
Orders/Labs/Results
Orders:
Orders
04/30/25 Dinner
2000 calorie (17 carb) Diabetic
At Your Request: Full Participation
04/30/25 15:46
Electrocardiogram (*1) Urgent
Reason for Study: Chest Pain
EKG- Treatment ONCE
04/30/25 17:18
Complete Blood Count/With Diff Urgent
Comprehensive Metabolic Panel Urgent
Magnesium Urgent
Troponin I Urgent
04/30/25 17:52
0.9% Sodium Chloride 500 ml [Nss] 500 ml IV BOLUS
Nitroglycerin Sublingual [Nitrostat (Sublingual)] 0.4 mg SL NOW STA
04/30/25 17:53
Nitroglycerin Sublingual [Nitrostat (Sublingual)] 0.4 mg SL [id number] PRN
04/30/25 18:06
Nitroglycerin 100 mg/250 ml [Nitroglycerin Premix] 100 mg in 250 ml IV NOW
Initial dose in mcg/min, then titrate:: 5
Titrate to keep:: SBP < 160 mmHg
Titrate by mcg/min:: 5 mcg/min, may increase by 10 mcg/min if dose > 20 mcg/min
Frequency of titrations (minutes):: every 3-5 minutes
Maximum dose in mcg/min:: 200
Begin to taper infusion when:: Remained at goal for 2hrs
Taper by mcg/min:: 5 mcg/min
Frequency of taper (minutes) if patient maintains goal:: 30
Taper to off?: Yes
If infusion off & no longer maintaining goal:: Contact Provider
04/30/25 18:12
CR Chest Portable - 1 View Urgent
Comment:
Reason For Exam: cp
Reason Study Needs to be Portable: Patient Unstable
04/30/25 18:19
Heparin 4,000 units IV NOW STA
Nursing to Place Non Medication Order As Directed
Physician Order: PTT 6 hours after initial start of Heparin infusion
Above order entered?: Yes
04/30/25 18:30
Heparin 82714 Units/250 ml 25,000 units in 250 ml IV PER PROTOCOL
Weight to be used for heparin protocol in kilograms (kg):: 84.7
Protocol:: Cardiac Tx/Acute Coronary
PTT Goal Range to be used:: PTT 73 to 111 seconds
Order type:: Initial
INITIAL Infusion Dose (UNITS/KG/hr) & then follow protocol:: 12 units/kg/hr
Infusion Dose in UNITS/hr & then follow protocol (UNITS/hr):: 1,000
INFUSION RATE in mL/hr & then follow protocol (mL/hr):: 10
PTT less than or equal to 64 seconds:: Increase rate by 200 units/hr (+ 2 mL/hr)
PTT 64.1 to 72.9 seconds:: Increase rate by 100 units/hr (+ 1 mL/hr)
PTT 73 to 111 seconds:: Target Range. No change in rate.
PTT 111.1 to 130.9 seconds:: Decrease rate by 100 units/hr (- 1 mL/hr)
PTT 131 to 199.9 seconds:: HOLD for 1 hr. Then decrease rate by 200 units/hr (- 2 mL/hr)
PTT greater than or equal to 200 seconds:: HOLD for 2 hrs & Notify Provider. Then decrease by 200 units/hr (-
2 mL/hr)
Lab follow-up:: Each change, PTT q6h until 2 consecutive are therapeutic. Then PTT
daily.
04/30/25 18:31
PTT Urgent
Comment: Obtain baseline before beginning heparin infusion if not already collected
04/30/25 19:38
Electrocardiogram (*1) Urgent
Reason for Study: Hypertension, Benign
EKG- Treatment ONCE
04/30/25 19:45
Admit/Transfer Patient As Directed
Co-Sign Provider:
Level of Care: Inpatient admission
Assign to:: IVU
Physician / Group: Dominique
Diagnosis: NSTEMI
Reason for Hospitalization: NSTEMI
Expected length of stay greater than two midnights?: Yes
ELOS- Estimated Length of Stay in days: 3
I certify the patient meets the requirements for IP care: Yes
PRN Pain Medication Management As Directed
May give lesser potent ordered pain med per pt: Yes
preference::
Protocol:: Medication orders for pain may be administered in a
manner that supports deferring to patient preference
when the pt is:
- Requesting an ordered lesser potent pain medication.
Least to most potent pain medications are defined
as: acetaminophen < NSAID < tramadol < opioids
(morphine, oxycodone, hydromorphone).
- Requesting a lesser dose of the same medication IF
ORDERED.
- Requesting a less intrusive route of administration
if both routes are prescribed by the provider (PO <
IV).
04/30/25 19:51
Code Status As Directed
Resuscitation Status: Full Code
04/30/25 20:38
Troponin I Q6H
08/02/25 21:28
Acetaminophen [Tylenol] 650 mg PO Q4HPRN PRN
Dextrose 50%-Water [Dextrose 50% Syringe] 12.5 grams IV [id number] PRN
Glucagon [GlucaGen] 1 mg IM PRN PRN
04/30/25 21:28
CARDIOLOGY CONSULT Routine
Consulting Provider: Roshan Valdez
Was physician already notified: Yes
Heparin Protocol- PTT Orders As Directed
PTT per Heparin protocol: -Obtain CBC and baseline PTT - if not already collected.
-Obtain PTT 6 hours from start of infusion. Then, every 6 hours until 2 consecutive
PTT's are therapeutic. Then, PTT Daily.
-With each rate change, obtain PTT every 6 hours until 2 consecutive PTT's are
therapeutic. Then, PTT Daily.
Activity As Directed
Activity Level: Out of Bed- Chair
Bedside Glucose Monitoring As Directed
Frequency: AC&HS
Additional Instructions:: Change to q6h if pt on TPN, tube feeding or not eating
I&O [Intake/ Output] As Directed
Frequency: q12h
Notify MD As Directed
Notify physician if: PTT is greater than or equal to 200.
Vital Signs As Directed
Frequency: Per unit guidelines
Weight As Directed
Frequency: Daily
05/01/25 00:47
PTT Urgent
05/01/25 03:00
Troponin I Q6H
05/01/25 06:00
Basic Metabolic Panel IN AM
Complete Blood Count/No Diff IN AM
Glycohemoglobin (HgbA1c) IN AM
Lipid Profile [Cardiovascular Evaluation] IN AM
Magnesium IN AM
05/01/25 07:30
Insulin Aspart Corrective Low [Novolog Flexpen-Low Resistance] See Protocol SC AC
05/01/25 08:00
Aspirin Low Dose EC [Aspir Low (Enteric Coated)] 81 mg PO DAILY
Dapagliflozin [Farxiga] 10 mg PO DAILY
Prasugrel Hydrochloride [Effient] 10 mg PO DAILY
Rosuvastatin Calcium [Crestor] 20 mg PO DAILY
05/01/25 09:00
Troponin I Q6H
05/02/25 06:00
Complete Blood Count/No Diff Q2D
Comment: notify provider: Platelet count < 130,000 or decrease by 50% from baseline
05/04/25 06:00
Complete Blood Count/No Diff Q2D
Comment: notify provider: Platelet count < 130,000 or decrease by 50% from baseline
05/06/25 06:00
Complete Blood Count/No Diff Q2D
Comment: notify provider: Platelet count < 130,000 or decrease by 50% from baseline
05/08/25 06:00
Complete Blood Count/No Diff Q2D
Comment: notify provider: Platelet count < 130,000 or decrease by 50% from baseline
05/10/25 06:00
Complete Blood Count/No Diff Q2D
Comment: notify provider: Platelet count < 130,000 or decrease by 50% from baseline
05/12/25 06:00
Complete Blood Count/No Diff Q2D
Comment: notify provider: Platelet count < 130,000 or decrease by 50% from baseline
05/14/25 06:00
Complete Blood Count/No Diff Q2D
Comment: notify provider: Platelet count < 130,000 or decrease by 50% from baseline
05/16/25 06:00
Complete Blood Count/No Diff Q2D
Comment: notify provider: Platelet count < 130,000 or decrease by 50% from baseline
Abnormal Lab Results
04/30/25
17:18
Hct 36.9 L %
(37.0-47.0)
Absolute Lymphs (auto) 1.1 L 10^3/uL
(1.2-3.4)
Chloride 109 H mmol/L
(98-107)
BUN 25 H mg/dl
(7-17)
Glucose 124 H mg/dl
(70-99)
Troponin I 0.470 H* ng/ml
04/30/25 17:18
04/30/25 17:18
Vital Signs
Initial and Last Documented VS:
Initial Vital Signs
Temp Pulse Resp BP Pulse Ox
98.4 F 86 18 182/151 99
04/30/25 15:51 04/30/25 15:51 04/30/25 15:51 04/30/25 15:51 04/30/25 15:51
Last Documented Vital Signs
Temp Pulse Resp BP Pulse Ox
98.4 F 99 15 122/64 93
04/30/25 15:51 04/30/25 21:45 04/30/25 21:15 04/30/25 21:33 04/30/25 21:15
*Pulse Oximetry
SaO2: 99
Oxygen Mode of Delivery: Room air
Patient hypoxic: no
*Machine Zipper Trimmer Interpretation
Rate: normal
Interpretation: normal
Rhythm: sinus
*Critical Care Note
Total Time (30-74mins, 75-104mins- exclusive of procedures): 50 minutes
ED Attending Note
-
Portions of this chart may have been created with voice recognition software.� Occasional wrong word or��sound alike� substitutions may have occurred due to the inherent limitations of voice recognition software.
Discharge Plan
Departure
Patient Disposition: Admit
Date of Disposition: 04/30/25
Time of Disposition: 18:19
Admit to: IVU
Presentation/result/management discussed w/ accepting MD/DO: Hospitalist
Discharge Problem:
Acute non-ST elevation myocardial infarction (NSTEMI)
Interventions
Interventions:
*Risk Screen - Suicide Last Done: 04/30/25 15:51
*General Assessment Last Done: 04/30/25 15:51
*Neglect/Abuse Screening Last Done: 04/30/25 15:51
*ED- Fall Risk Assessment Last Done: 04/30/25 21:36
*ED COVID-19 Vaccine History Last Done: 04/30/25 21:36
*Nursing Disposition Last Done: 04/30/25 21:36
ED- Cardiac Assessment Last Done: 04/30/25 17:22
Discharge Date and Time
Discharge Date/Time: 04/30/25 21:37
[2025-04-30] MEDS: HEPARIN 4000 UNITS IV (18:45)
[2025-04-30] MEDS: HEPARIN 25000 UNITS/250 ML IV (18:47)
[2025-04-30] MEDS: NITROGLYCERIN PREMIX 250 IV (18:48)
[2025-04-30 18:50] LABS: APTT 34.6 Sec (23.4-35.0)
--- NOTE | 2025-04-30 19:12 | HPS.HSE ---
Family Physician
-
Family Physician: PHYSICIAN PRIVATE
Chief Complaint
-
Chest Pain
History of Present Illness
Patient is a 64 y.o female past medical history of CAD s/p LAD stent in December 2024, and diabetes mellitus who presents with chest pain. Patient underwent a re-stenting of her LAD in December 2024. She reports she was doing very well for quite
sometimes and walking without any symptoms. Over the past few weeks patient report increasing chest pain particularly with activity. She has been using her nitroglycerin which sometimes offers relief of the pain. She notes sometimes the darline
radiates to her arms and her jaw. She notes that these symtpoms are different than her prior episodes of chest pain.
Medical History
Past Medical History
Past Medical History: Reports Other
Additional Past Medical History:
Coronary Artery Disease s/p LAD Stent (most recent December 2024)
Diabetes Mellitus, Type II
Dyslipidemia
Myasthenia Gravis s/p Thymectomy
Past Surgical History: Reports Other
Additional Past Surgical History:
Cardiac Stent
Thymectomy
Section
Social History
Tobacco: Non-smoker
Alcohol: Occasional
Drug: None
Family History
Family History: Other (Mother: CAD, HLD; Father: presumed from [place] (sudden in 60s on [place] court))
Allergies / Home Medications
Allergies reflects when Allergies were last updated in [facility].
Home Medications with original date entered in [facility]
Allergy/Medication List:
Allergies
Allergy/AdvReac Type Severity Reaction Status Date / Time
Iodinated Contrast Media Allergy Itching Verified 04/30/25 15:51
shellfish derived Allergy Itching Verified 04/30/25 15:51
Home Medications
aspirin 81 mg tablet,delayed release 81 mg PO DAILY 01/04/25
calcium 500 mg (as carbonate)-vitamin D3 10 mcg (400 unit) tablet (Calcium 500 + D) 1 tab PO DAILY 01/04/25
coQ10 (ubiquinol) 100 mg capsule 100 mg PO DAILY 01/04/25
icosapent ethyl 1 gram capsule (Vascepa) 2 g PO BID 01/04/25
metformin 500 mg tablet,extended release 24 hr 1,000 mg PO BID 01/04/25
therapeutic multivitamin 1 tab PO DAILY 01/04/25
prasugrel HCl 10 mg tablet 10 mg PO DAILY #30 tabs 01/05/25
rosuvastatin 20 mg tablet 20 mg PO DAILY 30 days #30 tabs 01/05/25
dapagliflozin propanediol 10 mg tablet (Farxiga) 10 mg PO DAILY 04/30/25
nitroglycerin 400 mcg/spray translingual 1 spray sublingual [id number] PRN Chest Pain 04/30/25
Review of Systems
-
A 12 point ROS was completed and negative except as noted: Yes
Constitutional: Denies Fever or Chills
Respiratory: Denies Cough or Trouble Breathing
Cardiac: Reports See HPI
Physical Exam
Vital Signs
Vital Signs
Temp Pulse Resp BP Pulse Ox
98.4 F 85 17 133/71 96
04/30/25 15:51 04/30/25 19:00 04/30/25 19:00 04/30/25 19:00 04/30/25 19:00
Physical Exam
General: Comfortable and Conversant
HEENT: Anicteric and Moist mucous membranes
Respiratory: Clear and Non Labored Respirations
Cardiac: S1/S2 and Regular Rhythm
GI: Soft and Non Tender
Rectal: Deferred by Provider
Musculoskeletal: No Clubbing, No Cyanosis and No Edema
Skin: Warm and Dry
Neuro: Awake, Alert, Oriented and Nonfocal/grossly intact
Psych: Calm
Laboratory Results
-
04/30/25 17:18
04/30/25 17:18
Laboratory Results
APTT 34.6 Sec (23.4-35.0) 04/30/25 18:31
Total Bilirubin 0.4 mg/dl (0.2-1.3) 04/30/25 17:18
AST 23 U/L (14-36) 04/30/25 17:18
ALT 17 U/L (0-35) 04/30/25 17:18
Alkaline Phosphatase 84 U/L (38-126) 04/30/25 17:18
Troponin I 0.470 ng/ml H* 04/30/25 17:18
Data Reviewed
-
Lab Data: Labs Reviewed by me
Impression/Plan
-
NSTEMI
-Consult Cardiology
-Continue heparin drip
-Continue nitro drip
-Continue aspirin and prasugrel
Diabetes Mellitus, Type II
-Hold metformin for cardiac cath
-Continue Farxiga
-Check HgbA1c
Dyslipidemia
-Continue Crestor
-Patient maintained on Vascepa as outpatient
DVT proph: Heparin drip
Code Status: Full Code
--- NOTE | 2025-04-30 20:52 | W.PN.UPDATE ---
Update Note
Progress Note Update
patient seen and examined independently
Please see PA note for full details
64 y.o woman with a past medical relevant history of CAD (s/p LAD stent in December 2024), and diabetes mellitus, who presents with chest pain. She had a re-stenting of her LAD in December 2024. Over the past weeks she reports increasing chest pain with
activity. She has been using her nitroglycerin, and this sometimes offers relief of the pain. The pain radiates to her arms and her jaw. She notes that this is different from her prior episodes of chest pain. At the time of my interview she was
comfortable.
Past Medical History
Coronary Artery Disease s/p LAD Stent (most recent December 2024)
Diabetes Mellitus, Type II
Dyslipidemia
Myasthenia Gravis s/p Thymectomy
Cardiac Stent
Thymectomy
Section
Physical Exam
General: Comfortable
Respiratory: Clear
Cardiac: S1/S2
GI: Soft
Skin: Warm
Neuro: Awake
Psych: Calm
Troponin 0.470
ECG:
NORMAL SINUS RHYTHM
POSSIBLE LEFT ATRIAL ENLARGEMENT
NONSPECIFIC ST ABNORMALITY
ABNORMAL ECG
WHEN COMPARED WITH ECG OF 05-Jan-2025 03:28,
NONSPECIFIC T WAVE ABNORMALITY NOW EVIDENT IN INFERIOR LEADS
Impression/Plan
1. NSTEMI
Cardiology consult
heparin drip
nitro drip
aspirin and prasugrel
Please see PA note for full details on
Diabetes Mellitus, Type II
Dyslipidemia
[2025-04-30 21:23] LABS: Troponin I 0.515 ng/ml
--- NOTE | 2025-04-30 22:05 | PTCARENOTE ---
Received pt from ED @ [id number]. AAOx3, VSS-- NSR on monitor. Heparin gtt running @ 1000 units/hr and nitro gtt running @ 70 mcg/min through right wrist. Pt states chest pain 10/08. Discussed plan of care for evening. Pt verbalizes understanding. Call
[facility] within room.
[2025-04-30 22:50] LABS: Glucose - Point of Care 153 mg/dl (70-99)
[2025-05-01] VITALS (11 sets, daily range): BP systolic 99–125; BP diastolic 48–69; BMI 28.5
[2025-05-01 01:32] LABS: APTT 53.9 Sec (23.4-35.0)
[2025-05-01 01:55] LABS: Troponin I 0.520 ng/ml
[2025-05-01 08:17] LABS: Hematocrit 33.9 % (37.0-47.0); Hemoglobin 11.2 g/dL (12.0-16.0); Mean Corp Hgb Conc. 33.0 g/dL (33.0-37.0); Mean Corpuscular Volume 87.4 fL (81.0-99.0); Platelet Count 241 10^3/uL (130-400); Red Cell Dist. Width 14.0 % (11.5-14.5)
[2025-05-01 08:27] LABS: APTT 74.1 Sec (23.4-35.0)
[2025-05-01] MEDS: FARXIGA 10 MG PO (08:42)
[2025-05-01] MEDS: CRESTOR 20 MG PO (08:42)
[2025-05-01] MEDS: ASPIR LOW (ENTERIC COATED) 81 MG PO (08:42)
[2025-05-01 08:59] LABS: Troponin I 0.506 ng/ml
[2025-05-01 09:05] LABS: Blood Urea Nitrogen 22 mg/dl (7-17); Calcium 8.8 mg/dl (8.4-10.2); Carbon Dioxide 22 mmol/L (22-30); Chloride 109 mmol/L (98-107); Estimated Creatinine Clearance 105 ml/min; Glucose 114 mg/dl (70-99); HDL Cholesterol 59 mg/dl; LDL Cholesterol, Calculated 16 mg/dl; Magnesium 1.9 mg/dl (1.6-2.3); Potassium 4.3 mmol/L (3.5-5.1); Sodium 139 mmol/L (135-145); Very Low Density Lipoprotein 12 mg/dl (0-30); eGFR > 60.00
[2025-05-01 09:26] LABS: Glucose - Point of Care 123 mg/dl (70-99)
[2025-05-01] MEDS: NOVOLOG FLEXPEN-LOW RESISTANCE SC ×2 (09:33→12:40)
[2025-05-01 10:59] LABS: Glycohemoglobin (HgbA1c) 6.8 % (4.0-5.6)
[2025-05-01] MEDS: TYLENOL 650 MG PO ×3 (11:22→23:42)
--- NOTE | 2025-05-01 11:37 | CON.CAR ---
Consultation
Consultation Request
Date/Time Consultation Requested: April 30, 2025 7 PM
Date/Time Consultation Performed: May 01, 2025 11:15 AM
Requesting Provider: Hospitalist
Performing Provider: Roshan Valdez
Reason for Consultation: Chest pain
Medical History
-
Chief Complaint: Chest pain
History of Present Illness:
64-year-old female with past medical history of CAD status post LAD stent in December 2024, type 2 diabetes, hyperlipidemia, who is here for evaluation of chest pain. She tells me that over the last couple weeks she has had her typical symptoms of
chest pain especially with activity. However, over the last couple of days she had been experiencing chest pain even with rest. She would take nitroglycerin and this would relieve it. However, given her rest chest pain she decided to present to
the emergency room. She has a positive troponin and will need coronary angiography.
Past Medical History
Past Medical History: CAD (LAD PCI 2015), Hypercholesterolemia, NIDDM and Other (Myasthenia gravis, PAD)
Past Surgical History: and Other (Thymectomy)
Social History
Tobacco: Former Smoker (socially in college)
Personal:
Living: With Family
Employment: Retired
Family History
Family History: Reviewed & Not Pertinent
Allergies / Home Medications
Allergy/AdvReac Type Severity Reaction Status Date / Time
Iodinated Contrast Media Allergy Itching Verified 04/30/25 15:51
shellfish derived Allergy Itching Verified 04/30/25 15:51
�Medication �Instructions �Recorded �Confirmed �Type
aspirin 81 mg tablet,delayed 81 mg PO DAILY 01/04/25 04/30/25 History
release
calcium 500 mg (as 1 tab PO DAILY 01/04/25 04/30/25 History
carbonate)-vitamin D3 10 mcg (400
unit) tablet (Calcium 500 + D)
coQ10 (ubiquinol) 100 mg capsule 100 mg PO DAILY 01/04/25 04/30/25 History
icosapent ethyl 1 gram capsule 2 g PO BID 01/04/25 04/30/25 History
(Vascepa)
metformin 500 mg tablet,extended 1,000 mg PO BID 01/04/25 04/30/25 History
release 24 hr
therapeutic multivitamin 1 tab PO DAILY 01/04/25 04/30/25 History
prasugrel HCl 10 mg tablet 10 mg PO DAILY #30 tabs 01/05/25 04/30/25 Rx
rosuvastatin 20 mg tablet 20 mg PO DAILY 30 days #30 tabs 01/05/25 04/30/25 Rx
dapagliflozin propanediol 10 mg 10 mg PO DAILY 04/30/25 04/30/25 History
tablet (Farxiga)
nitroglycerin 400 mcg/spray 1 spray sublingual Q5MPRN PRN 04/30/25 04/30/25 History
translingual Chest Pain
Review of Systems
-
All other systems: Negative unless noted
Physical Exam
Vital Signs
Temp Pulse Resp BP Pulse Ox
97.8 F 83 20 104/58 92
05/01/25 07:47 05/01/25 05:20 05/01/25 07:47 05/01/25 05:20 05/01/25 07:47
Lab Results
05/01/25 08:07
05/01/25 08:07
Troponin I 0.506 ng/ml H* 05/01/25 08:07
Physical Exam
General: Well Developed, Well Nourished and No Apparent Distress
HEENT: Normocephalic
Respiratory: Clear
Cardiac: S1/S2
GI: Soft
Musculoskeletal: No Edema
Skin: Warm and Dry
Neuro: AO x 3
Hematologic/Lymphatic: No Lymphadenopathy
Psych: Calm
Impression / Plan
-
A/P: 64-year-old female with history of CAD status post stenting, hyperlipidemia, type 2 diabetes, who is here for worsening chest pain and positive troponin.
ACS/NSTEMI
- Discussed with interventional cardiology will hold Effient continue heparin and aspirin
- Nitro drip
- Pretreatment for cath tomorrow given iodine allergy
- Echocardiogram
Hyperlipidemia
- Continue statin
Type 2 diabetes
- Per primary
Data Reviewed
-
EKG: Tracing Personally Visualized and interpreted (Sinus rhythm)
Medical Tests (Nuc Med, Echo etc): Report Reviewed by me
Labs: Labs Reviewed by me
[2025-05-01 12:40] LABS: Glucose - Point of Care 130 mg/dl (70-99)
--- NOTE | 2025-05-01 13:04 | W.PN.HOSP.TC ---
Today's Communication/Plan
-
see outlined plan below
Assessment / Plan
Assessment / Plan
Assessment:
NSTEMI (acute coronary syndrome)
- continue IV heparin, continue statin.
- hold Effient
- continue Nitro drip
- cardiac cath Friday; pre-treatment per Cardiology given contrast allergy
Diabetes Mellitus, Type II
- Hold metformin for cardiac cath
- continue Farxiga
- HgbA1c 6.8%
Dyslipidemia
- continue statin
- atient maintained on Vascepa as outpatient
DVT proph: Heparin drip
Code Status: Full Code
Anticipated Discharge: > 48 hours
Subjective/Interval History
-
Date of Service: May 01, 2025
currently chest pain free; also denies SOB
Objective Data
-
Labs:
Laboratory Results
05/01/25 05/01/25
01:11 08:07
WBC 6.1
Hgb 11.2 L
Hct 33.9 L
Plt Count 241
APTT 53.9 H 74.1 H
Sodium 139
Potassium 4.3
Chloride 109 H
Carbon Dioxide 22
BUN 22 H
Creatinine 0.6
Glucose 114 H
Calcium 8.8
Vital Signs:
Vital Signs
Temp Pulse Resp BP Pulse Ox
97.9 F 80 18 116/69 99
05/01/25 12:10 05/01/25 12:10 05/01/25 12:10 05/01/25 12:10 05/01/25 12:10
Physical Exam
-
General: No Apparent Distress
HEENT: Normocephalic and Atraumatic
Respiratory: Negative Wheezes
Cardiac: Regular Rhythm and S1/S2
GI: Soft
Genito-urinary: No Costovertebral Tender
Neuro: AO x 3
Psych: Calm
Data Reviewed
-
Total Time Spent with Patient (in minutes): 51
Labs: Labs Reviewed by me
[2025-05-01 14:47] LABS: APTT 66.4 Sec (23.4-35.0)
[2025-05-01] MEDS: HEPARIN 25000 UNITS/250 ML IV (15:52)
--- NOTE | 2025-05-01 16:34 | PTCARENOTE ---
05/01/25 Received patient from previous shift in bed. IV Heparin at 1200 units/hr & IV Nitroglycerin at 70 mcg/min infusing. Pt on vehicle monitor technician NSR, VSS, afebrile. Pt on room air at 98%. Pt has minimal chest pain 1/10 at times. Pt denies any
shortness of breath, palpitations or dizziness. Pt OOB chair and walking in bathroom without issues. Pt NPO after MN for Cath Friday
[2025-05-01 17:32] LABS: Glucose - Point of Care 225 mg/dl (70-99)
[2025-05-01] MEDS: NITROGLYCERIN PREMIX 250 IV (17:59)
[2025-05-01] MEDS: NOVOLOG FLEXPEN-LOW RESISTANCE 2 UNITS SC (18:19)
[2025-05-01 21:24] LABS: APTT 77.7 Sec (23.4-35.0)
[2025-05-01] MEDS: DELTASONE 50 MG PO (22:57)
[2025-05-01 23:10] LABS: Glucose - Point of Care 191 mg/dl (70-99)
--- NOTE | 2025-05-01 23:52 | PTCARENOTE ---
Patient received at change of shift out of bed to the chair. Heparin gtt infusing at 1300units/hr. Nitroglycerin gtt infusing at 70mcg/min. Patient reports intermittent chest pain rated as a one out of ten, per the patient it does not seem to
intensify with exertion but comes and goes at random. Sinus rhythm on telemetry. Oxygen saturation 96-97% on room air. The patient reports a persistent headache, PRN acetaminophen administered, see MAR. Plan of care discussed including NPO at
midnight. Call montano within reach. Care ongoing
[2025-05-02] VITALS (39 sets, daily range): BP systolic 97–178; BP diastolic 58–105; BMI 28.0
--- NOTE | 2025-05-02 02:10 | W.PN.UPDATE ---
Update Note
Progress Note Update
patient with tears states burning pain in mid chest and also 'achy' pain radiating to both arms elbow down to wrist mainly on right arm, reports this is the first time she is feeling this much of a pain. She is on Nitrodrip at present. and continuos
to be in pain.
patient is restless, shaky and teary, reported feeling nauseous, denies being short of breath (anxious).
Heart tachy RR, Lungs clear.
EKG result noted, VS: BP 138/71, 160's-170's/ 90's, HR 87. ECG completed. 2L O2 applied.
will order Morphine 2mg IVx1
Benadryl 12.5mg IVx1 (QTC 480 last EKG)
Protonix 40mg IV x1.
pending labs.
due for Cath today.
reassessed, patient states she feels million times better. More calm and conversant. lab results noted, will maintain NPO, Nitrodrip, heparin drip.
[2025-05-02 02:14] LABS: Hematocrit 35.8 % (37.0-47.0); Hemoglobin 12.1 g/dL (12.0-16.0); Mean Corp Hgb Conc. 33.8 g/dL (33.0-37.0); Mean Corpuscular Volume 85.4 fL (81.0-99.0); Platelet Count 269 10^3/uL (130-400); Red Cell Dist. Width 13.8 % (11.5-14.5)
[2025-05-02] MEDS: MORPHINE SULFATE 2 MG IV (02:21)
[2025-05-02] MEDS: PROTONIX IV 40 MG IV (02:27)
[2025-05-02] MEDS: NSS (PRESERVATIVE FREE) 10 ML IV (02:27)
[2025-05-02] MEDS: BENADRYL 12.5 MG IV (02:27)
[2025-05-02 02:33] LABS: APTT 93.7 Sec (23.4-35.0)
[2025-05-02 03:03] LABS: Troponin I 0.278 ng/ml
[2025-05-02 03:21] LABS: Blood Urea Nitrogen 19 mg/dl (7-17); Calcium 9.8 mg/dl (8.4-10.2); Carbon Dioxide 20 mmol/L (22-30); Chloride 109 mmol/L (98-107); Estimated Creatinine Clearance 104 ml/min; Glucose 263 mg/dl (70-99); Potassium 4.4 mmol/L (3.5-5.1); Sodium 140 mmol/L (135-145); eGFR > 60.00
--- NOTE | 2025-05-02 03:39 | PTCARENOTE ---
Called to room by patient for chest pain waking her from sleep at approximately 0135. Reported burning/pressure sensation, rating as a 6 out of 10. Right arm was also reportedly itchy (R arm PIVs intact and flushed appropriately, no evidence of
phlebitis or infiltration). BP 138/71, HR 87. ECG completed. 2L O2 applied. House CURB SETTER, Janes, notified who came to the bedside to assess the patient. Troponin and AM labs drawn and sent. Additional ECG completed as the patient became tachycardic. IV
Morphine, IV diphenhydramine, and IV pantoprazole ordered and given, see MAR. The patient was also briefly nauseous but did not vomit. Nitroglycerin gtt titrated up to 120mcg/min as chest pain increased to 10/10 pain, see worklist. Chest pain has
improved to a 3 out of 10. Radiation to arms no longer present. Sinus rhythm. Oxygen saturation on 2L NC 94%. BP 107/66. Care ongoing.
[2025-05-02] MEDS: DELTASONE 50 MG PO ×2 (04:30→10:22)
[2025-05-02] MEDS: ASPIR LOW (ENTERIC COATED) 81 MG PO (07:46)
[2025-05-02] MEDS: CRESTOR 20 MG PO (07:46)
[2025-05-02 07:47] LABS: Glucose - Point of Care 209 mg/dl (70-99)
[2025-05-02] MEDS: TYLENOL 650 MG PO ×2 (07:52→13:53)
[2025-05-02] MEDS: FARXIGA 10 MG PO (09:07)
[2025-05-02] MEDS: NOVOLOG FLEXPEN-LOW RESISTANCE 2 UNITS SC ×2 (09:07→18:12)
--- NOTE | 2025-05-02 10:04 | W.PN.HOSP.TC ---
Today's Communication/Plan
-
Await cardiac catheterization
Assessment / Plan
Assessment / Plan
Gen-AAOx3, NAD
HEENT-NC, AT, anicteric, clear oral mm
Neck-supple
CV-reg, no M, +S1/S2
Lungs-clear B/L
Abd-soft, NT, ND
Ext-no edema
Musculoskeletal-no cyanosis, clubbing
Skin-warm and dry
Neuro-grossly non-focal
Psych-calm, cooperative
NSTEMI (acute coronary syndrome) -chest pain last night relieved with IV morphine.
- continue IV heparin, continue statin.
- hold Effient
- continue Nitro drip
- Awaiting cardiac catheterization today. Received prednisone for contrast allergy.
DM2 with hyperglycemia -glucose 263 this morning. Ideally needs better glucose control. BMI 28, weight loss recommended.
- Hold metformin for cardiac cath
- continue Farxiga
- HgbA1c 6.8%
Hyperlipidemia
- continue statin
- maintained on Vascepa as outpatient
DVT proph: Heparin drip
Code Status: Full Code
Anticipated Discharge: Within 24 hours
Subjective/Interval History
-
Date of Service: May 02, 2025
Patient seen and examined. No complaints.
Objective Data
-
Labs:
Laboratory Results
05/02/25
02:03
WBC 11.1 H
Hgb 12.1
Hct 35.8 L
Plt Count 269
APTT 93.7 H
Sodium 140
Potassium 4.4
Chloride 109 H
Carbon Dioxide 20 L
BUN 19 H
Creatinine 0.6
Glucose 263 H
Calcium 9.8
Vital Signs:
Vital Signs
Temp Pulse Resp BP Pulse Ox
97.9 F 88 20 114/65 97
05/02/25 07:03 05/02/25 09:00 05/02/25 07:03 05/02/25 09:00 05/02/25 07:03
I&O
05/01/25 05/02/25 05/03/25
06:59 06:59 06:59
Intake Total 636 / 636
Balance 636 / 636
Review of Systems
-
History Source: Patient
All other systems: Reviewed and negative
--- NOTE | 2025-05-02 10:32 | PTCARENOTE ---
Report given to the lab specialist. Chest pain 2 out 10, comes and goes, mildly anxious. SR HR 86, BP 106/64. Prednisone PO given (IV contrast allergy). Held Benadryl until consent is obtained
--- NOTE | 2025-05-02 12:06 | CONSULT.CT ---
Consultation
-
Date/Time Consultation Requested: 05/02/25
Date/Time Consultation Performed: 05/02/25
Requesting Provider: Sam Moise
Performing Provider: Gisele Mejia MD
Reason for Consultation: CABG evaluation
Patient History
Physicians
Outpatient Multi Needle Machine Operator: Malorie Vizcaino MD
Inpatient Multi Needle Machine Operator: [facility]
History of Present Illness
64-year-old female with PMH significant for Myasthenia gravis s/p thymectomy (1999), steroid induced DM, RLE vein stripping, and known CAD s/p LAD stent in 2015 that required re-stenting in 12/2024 (on Effient-last dose 04/30). [place]mage well until 2 weeks
ago when she began experiencing sudden onset exertional chest pressure climbing a hill during vacation in [place]. Since that time, chest pressure has recurred at random unprovoked times, although exertion induces more intense pain, radiating
to arms and occasionally the jaw. Patient admitted to [facility] ER on 04/30/25 and found to have T wave inversions with troponin 0.7, consistent with NSTEMI. Patient taken to the [facility] 05/02 and found to have ... Currently pain free on IV NTG with IV
Heparin to be resumed later today.
Pertinent negatives: Denies CVA/TIA, asthma/COPD, bowel/bladder issues, DVT/PE, cancer, chest radiation, dysphagia
Past Medical History
Past Medical History: Angina, CAD, XIE, Hypercholesterolemia, NIDDM (steroid induced s/p thymectomy-on oral therapy; depression while on Ozempic-resolved with DC of drug) and Other (myasthenia gravis s/p thymectomy 1999)
Past Surgical History
Past Surgical History: PCI/Stent (LAD stent 2015 and 2024) and Other (thymectomy; cataracts; RLE vein stripping)
Social History
Alcohol: Occasional
Drug: None
Tobacco: Non-Smoker
Personal:
Living: With Spouse
Employment: Retired ([employer] )
Allergies
Allergy/AdvReac Type Severity Reaction Status Date / Time
Iodinated Contrast Media Allergy Itching Verified 04/30/25 15:51
shellfish derived Allergy Itching Verified 04/30/25 15:51
Home Medications
�Medication �Instructions �Recorded �Confirmed �Type
aspirin 81 mg tablet,delayed 81 mg PO DAILY Blood Clot 01/04/25 04/30/25 History
release Prevention/Tx
calcium 500 mg (as 1 tab PO DAILY Supplement 01/04/25 04/30/25 History
carbonate)-vitamin D3 10 mcg (400
unit) tablet (Calcium 500 + D)
coQ10 (ubiquinol) 100 mg capsule 100 mg PO DAILY Supplement 01/04/25 04/30/25 History
icosapent ethyl 1 gram capsule 2 g PO BID High Cholesterol 01/04/25 04/30/25 History
(Vascepa)
metformin 500 mg tablet,extended 1,000 mg PO BID@08,17 Diabetes 01/04/25 05/01/25 History
release 24 hr
therapeutic multivitamin 1 tab PO DAILY Supplement 01/04/25 04/30/25 History
prasugrel HCl 10 mg tablet 10 mg PO DAILY #30 tabs 01/05/25 04/30/25 Rx
rosuvastatin 20 mg tablet 20 mg PO DAILY 30 days #30 tabs 01/05/25 04/30/25 Rx
dapagliflozin propanediol 10 mg 10 mg PO DAILY Heart 04/30/25 04/30/25 History
tablet (Farxiga) Disease/Condition
nitroglycerin 400 mcg/spray 1 spray sublingual Q5MPRN PRN 04/30/25 04/30/25 History
translingual Chest Pain
Review of Systems
-
History Source: Patient
General: Reports No Symptoms
HEENT: Reports No Symptoms
Respiratory: Reports XIE
Cardiac: Reports Chest Pain
Abdomen/GI: Reports No Symptoms
: Reports No Symptoms
Musculoskeletal: Reports No Symptoms
Skin: Reports No Symptoms
Neurological: Reports No Symptoms
Vascular: Reports No Symptoms
Physical Exam
Vital Signs
Temp 97.9 F 05/02/25 07:03
Temp route: Oral 05/02/25 07:03
Pulse 88 05/02/25 09:00
Rhythm: Normal sinus rhythm 05/01/25 20:00
Resp Rate 20 05/02/25 07:03
Blood pressure 114/65 05/02/25 09:00
Blood pressure extremity used: Right upper arm 05/02/25 07:03
Position: Lying 05/02/25 07:03
MAP (cuff-Kelley Monitor) 79 05/02/25 09:00
SaO2 97 05/02/25 07:03
Nasal Cannula flow liters per minute 2 05/02/25 07:03
Oxygen Mode of Delivery Room air 05/01/25 22:56
Acceptable pain level during hospitalization? 0 04/30/25 15:51
Can the patient verbally communicate their pain? Yes 05/02/25 08:52
Pain scale ratin 05/02/25 08:52
Actual Weight 81.1 kg 05/02/25 02:33
Body Mass Index (BMI) 28.0 05/02/25 02:33
Labs
05/02/25 02:03
05/02/25 02:03
APTT 93.7 Sec (23.4-35.0) H 05/02/25 02:03
Hemoglobin A1c 6.8 % (4.0-5.6) H 05/01/25 08:07
Troponin I 0.278 ng/ml H* 05/02/25 02:11
Diagnostic Studies
LHC 05/02/25:
LM: large, normal
LAD: Overlapping stents in the mid-vessel jailing the D2. Severe 99% tubular stenosis proximal to the proximal stent edge in a region that on angiography several months ago had only mild tubular narrowing. Mild 30-40% ISR within the recently placed
stent. The mid-distal vessel has TIMI2 flow. There are also faint R-L septal collaterals from the RCA. There was no change in vessel appearance after injection of 300 ug intracoronary nitroglycerine.
LCx: large vessel giving rise to a moderate caliber OM1, large OM2, and two small LPL branches. There is no CAD.
RCA: large vessel giving rise to a small RPDA and moderate caliber RPL branch. There is very mild ostial narrowing and otherwise no CAD.
TTE 01/05/25:
EF 60-65%. Trace AI, MR, TR
Exam
General: Well Developed, Well Nourished and Comfortable
HEENT: Normocephalic, Anicteric, Moist Mucous Membranes and PERRLA
Respiratory: Clear
Cardiac: S1/S2 and Regular Rhythm
GI: Soft, Non Tender, Non Distended and Normal Bowel Sounds
Rectal: Deferred by Provider
Skin: Warm and Dry
Neuro: AO x 3 and CN X-XII Intact
Extremities: Pulses (+2/4 B/L DP pulses)
Lymph: No Lymphadenopathy
Psych: Calm
Assessment / Plan
-
64 year old female with prior stenting of LAD, admitted with NSTEMI and found to have single vessel coronary disease with 99% LAD stenosis proximal to stent. Preserved LVEF by TTE (01/05/25)
- Last dose Effient 04/30>check TEG 05/04
- Dr Mejia reviewed imaging and will plan for MIDCAB x 1 (FERRIS-LAD) on 05/06
- will calculate STS risk when pre-op diagnostics completed
Data Reviewed
-
EKG: Report Reviewed by me and Discussed with Physician
[facility]: Report Reviewed by me and Discussed with Physician
Echo: Report Reviewed by me and Discussed with Physician
Radiology: Report Reviewed by me and Discussed with Physician
Labs: Labs Reviewed by me and Discussed with Physician
[2025-05-02] MEDS: NITROGLYCERIN PREMIX 250 IV (12:16)
--- NOTE | 2025-05-02 12:32 | ITS.CL.PN ---
Last Marker - Procedure Note
Procedure
Procedure Note:
CARDIAC CATHETERIZATION REPORT
Date of Procedure: 05/02/2025
Referring: Dr. Roshan Valdez MD
Indication: NSTEMI
PROCEDURE(S)
1. left heart catheterization
2. coronary angiography
ACCESS: 6F right radial artery (closure: radial band)
CATHETERS
1. 6F JR4
2. 5F JL3.5 (downsized from 6F due to severe radial spasm)
MODERATE SEDATION: 35 minutes of moderate sedation was utilized. An independent center medical specialist was present to assist with and help manage the patient's level of consciousness and physiologic status.
HEMODYNAMIC DATA
LV 137/8 (EDP 20) mmHg
AO 135/73 (104) (mean 88) mmHg
CORONARY ANGIOGRAPHY
Dominance: right
LM: large, normal
LAD: large vessel giving rise to a small D1 and moderate caliber D2. There are overlapping stents in the mid-vessel jailing the D2. There is a severe 99% tubular stenosis proximal to the proximal stent edge in a region that on angiography several
months ago had only mild tubular narrowing. There is also mild 30-40% ISR within the recently placed stent. The mid-distal vessel has TIMI2 flow. There are also faint R-L septal collaterals from the RCA. There was no change in vessel appearance
after injection of 300 ug intracoronary nitroglycerine.
LCx: large vessel giving rise to a moderate caliber OM1, large OM2, and two small LPL branches. There is no CAD.
RCA: large vessel giving rise to a small RPDA and moderate caliber RPL branch. There is very mild ostial narrowing and otherwise no CAD.
RADIATION: dose 268 mGy; DAP 22 Gy*cm2; fluoroscopy time 3.5 min
CONCLUSIONS
1. Coronary artery disease as described with new high-grade stenosis in the proximal LAD proximal to the previously placed stent and evidence of mild-moderate ISR within the recently placed stent. The appearance of the lesion is suggestive of spasm
although there was no improvement with intracoronary nitroglycerin. Review of prior PCI including final IVUS does not suggest stent edge dissection as a possible explanation, and her symptoms only started in recent days. Even if this is all due to
spasm, she did not respond to anti-spasm agents including IC nitro, so I do not think that medical management of this lesion is feasible. PCI would be technically feasible but would result in a third layer of stent at the overlap, and I am concerned
that it will not provide a durable result as she has a propensity for both rapid progression of CAD at stent edge (either due to spasm, progressive athero, or both) as well as rapid ISR. Thus, I think the best approach would be coronary artery
bypass grafting, if possible with a minimally invasive approach with FERRIS to LAD. Finally, while IVUS would potentially clarify whether her new lesion is primarily atherosclerosis, spasm, or both, ultimately revascularization is warranted
regardless, surgery will provide the best intermediate result, and thus the risk of potential vessel compromise with wiring and IVUS passage are not justified. Her case was discussed with Dr. Bruce Mejia who has tentatively booked her for surgery
05/06/2025.
2. In the meantime, continue heparin drip and nitroglycerin to control chest pain.
3. Continue aspirin but hold P2Y12.
4. Obtain TTE.
Copy to: Dr. Malorie Vizcaino MD (window clerk); Dr. Don Gee MD (PCP)
Signed: Raymond Moise MD, PhD
--- NOTE | 2025-05-02 12:45 | PTCARENOTE ---
Patient received from the laborer pipeline. VSS, POX 95%, right radial band intact. NSR, chest pain free. Call montano in reach
--- NOTE | 2025-05-02 13:15 | CM ---
Chart reviewed. Patient is independent of ADLS, lives with her in a 3 [address], 3 ROCÍO, 0 DME. Plan is for the patient to return home. CM to follow
[2025-05-02 13:18] LABS: Glucose - Point of Care 173 mg/dl (70-99)
[2025-05-02] MEDS: NOVOLOG FLEXPEN-LOW RESISTANCE 1 UNITS SC (13:45)
[2025-05-02] MEDS: HEPARIN 25000 UNITS/250 ML IV (16:18)
[2025-05-02 17:53] LABS: Glucose - Point of Care 217 mg/dl (70-99)
[2025-05-02 18:06] LABS: Urine Character Clear (Clear)
--- NOTE | 2025-05-02 21:21 | PTCARENOTE ---
Patient received at change of shift resting in the bed. Heparin gtt infusing at 1300units/hr. Nitroglycerin gtt infusing at 95mcg/min. The patient reports no chest pain while resting in the bed but does endorse chest pain with exertion ranging from
1-2 out of 10. Sinus rhythm on telemetry. Right radial cath site with gauze and tegaderm C/D/I. Plan of care discussed with patient and spouse. Call montano within reach. Care ongoing.
[2025-05-02 22:31] LABS: Glucose - Point of Care 244 mg/dl (70-99)
[2025-05-02 23:03] LABS: APTT 67.4 Sec (23.4-35.0)
[2025-05-03] VITALS (8 sets, daily range): BP systolic 107–129; BP diastolic 55–72; BMI 28.9
[2025-05-03] MEDS: NITROGLYCERIN PREMIX 250 IV ×2 (02:12→20:03)
[2025-05-03 05:23] LABS: Hematocrit 30.5 % (37.0-47.0); Hemoglobin 10.2 g/dL (12.0-16.0); Mean Corp Hgb Conc. 33.4 g/dL (33.0-37.0); Mean Corpuscular Volume 85.4 fL (81.0-99.0); Platelet Count 241 10^3/uL (130-400); Red Cell Dist. Width 13.6 % (11.5-14.5)
[2025-05-03 05:37] LABS: APTT 101.8 Sec (23.4-35.0)
[2025-05-03 05:54] LABS: ALT (SGPT) 13 U/L (0-35); AST (SGOT) 20 U/L (14-36); Albumin 3.8 g/dl (3.5-5.0); Alkaline Phosphatase 72 U/L (38-126); Blood Urea Nitrogen 21 mg/dl (7-17); Calcium 9.0 mg/dl (8.4-10.2); Carbon Dioxide 18 mmol/L (22-30); Chloride 114 mmol/L (98-107); Estimated Creatinine Clearance 105 ml/min; Glucose 169 mg/dl (70-99); Magnesium 2.2 mg/dl (1.6-2.3); Potassium 4.1 mmol/L (3.5-5.1); Sodium 139 mmol/L (135-145); Total Protein 6.3 g/dl (6.3-8.2); eGFR > 60.00
[2025-05-03 07:28] LABS: Glucose - Point of Care 151 mg/dl (70-99)
[2025-05-03] MEDS: ASPIR LOW (ENTERIC COATED) 81 MG PO (08:24)
[2025-05-03] MEDS: CRESTOR 20 MG PO (08:24)
[2025-05-03] MEDS: NOVOLOG FLEXPEN-LOW RESISTANCE 1 UNITS SC ×2 (08:25→13:11)
--- NOTE | 2025-05-03 09:02 | W.PN.HOSP.TC ---
Today's Communication/Plan
-
Continue current care
Assessment / Plan
Assessment / Plan
Gen-AAOx3, NAD
HEENT-NC, AT, anicteric, clear oral mm
Neck-supple
CV-reg, no M, +S1/S2
Lungs-clear B/L
Abd-soft, NT, ND
Ext-no edema
Musculoskeletal-no cyanosis, clubbing
Skin-warm and dry
Neuro-grossly non-focal
Psych-calm, cooperative
NSTEMI (acute coronary syndrome) -chest pain last night relieved with IV morphine.
- continue IV heparin, continue statin.
- hold Effient
- continue Nitro drip
- Awaiting cardiac catheterization today. Received prednisone for contrast allergy.
DM2 with hyperglycemia -glucose 169 this morning. Daytime glucoses were over 200 yesterday, suspect related to prednisone, did receive 150 mg total in preparation for contrast exposure. Continue low resistance aspart scale.
BMI 28, weight loss recommended.
- Hold metformin for cardiac cath
- Farxiga ordered but now on hold per CT surgery
- HgbA1c 6.8%
Hyperlipidemia
- continue statin
- maintained on Vascepa as outpatient
DVT proph: Heparin drip
Code Status: Full Code
Anticipated Discharge: > 48 hours
Subjective/Interval History
-
Date of Service: May 03, 2025
Patient seen and examined. No complaints.
Objective Data
-
Labs:
Laboratory Results
05/02/25 05/03/25 05/03/25
22:40 05:11 11:00
WBC 9.2
Hgb 10.2 L
Hct 30.5 L
Plt Count 241
APTT 67.4 H 101.8 H Pending
Sodium 139
Potassium 4.1
Chloride 114 H
Carbon Dioxide 18 L
BUN 21 H
Creatinine 0.5 L
Glucose 169 H
Calcium 9.0
Total Bilirubin 0.5
AST 20
ALT 13
Alkaline Phosphatase 72
Vital Signs:
Vital Signs
Temp Pulse Resp BP Pulse Ox
98 F 76 18 107/55 96
05/03/25 07:22 05/03/25 07:22 05/03/25 07:22 05/03/25 05:04 05/03/25 07:22
I&O
05/02/25 05/03/25 05/04/25
06:59 06:59 06:59
Intake Total 636 / 636 680 / 680
Output Total 400 / 400
Balance 636 / 636 280 / 280
Review of Systems
-
History Source: Patient
All other systems: Reviewed and negative
--- NOTE | 2025-05-03 09:22 | PTCARENOTE ---
Patient in chair. Intermittent chest pressure 1 our 10 with ambulation, resolves with rest. Nitro gtt at 80mcg/min, denies headache. Heparin gtt at 1400units/hr. NSR on telemetry, VSS, call montano in reach
[2025-05-03] MEDS: HEPARIN 25000 UNITS/250 ML IV ×2 (10:43→20:03)
[2025-05-03 12:40] LABS: Glucose - Point of Care 199 mg/dl (70-99)
[2025-05-03 13:16] LABS: APTT 77.5 Sec (23.4-35.0)
--- NOTE | 2025-05-03 14:10 | W.PN.CD ---
Today's Communication / Plan
-
awaiting CABG
Echo
Impression / Plan
-
A/P: 64-year-old female with history of CAD status post stenting, hyperlipidemia, type 2 diabetes, who is here for worsening chest pain and positive troponin.
ACS/NSTEMI with recurrent LAD CAD on [facility] 05/02
- recent stenting of the mid LAD now with recurrent severe disease proximally, possible in part driven by spasm but not responsive to intracoronary nitroglycerine. Given single vessel LAD disease with recurrent high grade stenosis, young age, and
diabetic status, will plan for robotic FERRIS-LAD 05/06/25
- Nitro drip for chest pain free
- cont. heparin until CABG
- cont. asa, hold P2Y12
- will need aggressive secondary prevention of CAD with goal LDL<55 correction
- will repeat TTE
Hyperlipidemia
- Continue statin, eventual goal LDL<55
Type 2 diabetes
- Per primary
Physical Exam
Vital Signs/Labs
Vital Signs
Temp Pulse Resp BP Pulse Ox
36.6 C 71 18 109/64 97
05/03/25 11:35 05/03/25 11:35 05/03/25 11:35 05/03/25 07:24 05/03/25 11:35
05/02/25 05/03/25 05/04/25
06:59 06:59 06:59
Actual Weight 81.1 kg 83.6 kg
05/03/25 05:11
05/03/25 05:11
APTT 77.5 Sec (23.4-35.0) H 05/03/25 12:48
Magnesium 2.2 mg/dl (1.6-2.3) 05/03/25 05:11
Triglycerides 64 mg/dl (10-149) 05/01/25 08:07
LDL Cholesterol, Calc 16 mg/dl 05/01/25 08:07
VLDL Cholesterol, Calc 12 mg/dl (0-30) 05/01/25 08:07
HDL Cholesterol 59 mg/dl 05/01/25 08:07
LAB Results
04/30/25 04/30/25 05/01/25
17:18 20:38 01:11
Troponin I 0.470 H* 0.515 H* 0.520 H*
05/01/25 05/01/25 05/02/25
08:07 09:00 02:11
Troponin I 0.506 H* Cancelled 0.278 H*
Physical Exam
Constitutional: No acute distress
Cardiovascular: Rhythm & rate is regular
Respiratory: Respiratory effort normal
Neuro/Psych: AO x 3
Data Reviewed
-
Date of Service: May 03, 2025
Medical Decision Making: Reviewed Test Results
EKG: Tracing Personally Visualized and interpreted
Labs: Labs Reviewed by me
--- NOTE | 2025-05-03 14:40 | CM ---
Chart reviewed. Patent is independent of ADLS, lives with her in a 3 STH, 3 ROCÍO, 0 DME. Reviewed preoperative and postoperative instructions and restrictions, along with showering guidelines. Gave patient Cardiac Surgery Book.
Patient is outside driving radius for CT Transitional RN. Patient is going on vacation 06/12-07/17, so she will need postop appointments prior to. Plan is for the patient to return with and VN. CM to follow
--- NOTE | 2025-05-03 16:21 | W.PN.UPDATE ---
Update Note
Progress Note Update
STS RISK SCORE
Procedure Type:�Isolated CABG
Perioperative Outcome Estimate %
Operative Mortality 0.595%
Morbidity & Mortality 3.53%
Stroke 0.551%
Renal Failure 0.382%
Reoperation 1.54%
Prolonged Ventilation 1.72%
Deep Sternal Wound Infection 0.193%
Long Hospital Stay (>14 days) 2.06%
Short Hospital Stay (<6 days)* 63.6%
Clinical Summary
Planned Surgery: Isolated CABG, Urgent, First cardiovascular surgery
Demographics: 64 year old, female, 81.1kg, 170cm, BMI: 28.1 kg/m�
Lab Values: Creatinine: 0.5 mg/dL, Hematocrit: 30.5%, WBC Count: 9.2 10�/�L, Platelet Count: 801617 cells/�L
PreOp Medications: Oral diabetes control
Substance Abuse: Never smoker
Risk Factors / Comorbidities: Diabetes Mellitus
Cardiac Status: NYHA Class II, Ejection Fraction = 63%
Coronary Artery Disease: 1 vessel diseased, Proximal LAD Stenosis >=70%, Non-ST Elevation CT, CT: 1 to 7 Days
Valve Disease: Trivial/Trace AR, Trivial/Trace MR, Mild TR
Prev. Cardiac Interv: Previous PCI: Not during this episode of care
[2025-05-03 17:51] LABS: Glucose - Point of Care 225 mg/dl (70-99)
[2025-05-03] MEDS: NOVOLOG FLEXPEN-LOW RESISTANCE 2 UNITS SC (18:43)
--- NOTE | 2025-05-03 20:46 | PTCARENOTE ---
Patient received at change of shift out of bed to the chair. Heparin gtt infusing at 1400 units/hr. Nitroglycerin gtt infusing at 80mcg/min. The patient reports intermittent chest pain with exertion and states that she does not experience chest pain
at rest. Sinus rhythm on telemetry. Right radial cath site with gauze and tegaderm C/D/I, radial pulse palpable. Oxygen saturation 97% on room air. Plan of care discussed. Call montano within reach. Care ongoing
[2025-05-03 22:47] LABS: Glucose - Point of Care 202 mg/dl (70-99)
[2025-05-04] VITALS (18 sets, daily range): BP systolic 92–191; BP diastolic 58–112; BMI 28.8; BMI 29.0
[2025-05-04 04:18] LABS: INR 0.98; PT 13.3 Sec (11.4-14.6)
[2025-05-04 04:20] LABS: APTT 64.4 Sec (23.4-35.0)
[2025-05-04 05:05] LABS: Blood Urea Nitrogen 21 mg/dl (7-17); Calcium 8.8 mg/dl (8.4-10.2); Carbon Dioxide 21 mmol/L (22-30); Chloride 113 mmol/L (98-107); Estimated Creatinine Clearance 105 ml/min; Glucose 155 mg/dl (70-99); Potassium 4.2 mmol/L (3.5-5.1); Sodium 142 mmol/L (135-145); eGFR > 60.00
--- NOTE | 2025-05-04 06:25 | W.PN.UPDATE ---
Update Note
Progress Note Update
D/w Jayleen Cruz, plan for RA MIDCAB on Friday with me. All questions were answered. Risks and benefits of surgery were discussed in detail. Consent was obtained.
--- NOTE | 2025-05-04 06:50 | W.PN.CT ---
Today's Communication / Plan
-
Plan:
-Cont. current medical management per primary team
-Cont. current meds (ASA, Heparin gtt, NTG gtt, Crestor, Farxiga)
-Effient washout, last dose 04/30/25
-Will check TEG today
-For possible Robotic Assissted Mid CAB tomorrow, 05/05
-Will cont. to closely monitor
Assessment / Plan
-
Assessment:
-Single vessel CAD
-S/p PCI with stent to LAD in 2015 and again in on 12/2024, on Effient
-NSTEMI (peak trop 0.52)
-[place]
-HLD
-T2DM (hgb A1C 6.8)
-Depression
-Myasthenia gravis S/P thymectomy, 1999
Discussed patient care with: Cardiology, Nursing, Respiratory Therapy, Pharmacy and Care Team
Subjective
-
Date of Service: May 04, 2025
No issues overnight. Denies CP/SOB
Objective Data
-
Lab Results
05/03/25 05:11
05/04/25 03:54
PT 13.3 Sec (11.4-14.6) 05/04/25 03:54
INR 0.98 05/04/25 03:54
APTT 64.4 Sec (23.4-35.0) H 05/04/25 03:54
Vital Signs
Vital Signs
Temp Pulse Resp BP Pulse Ox
98.4 F 64 18 125/70 97
05/04/25 03:48 05/04/25 06:00 05/04/25 03:48 05/04/25 03:50 05/04/25 03:48
CT Intake/Output/Weight
05/03/25 05/03/25 05/04/25
06:59 18:59 06:59
Intake Total 795 / 795
Balance 795 / 795
SaO2: 97 (RA)
Physical Exam
-
General: Awake, Oriented and AOx3
Cardiovascular: Regular rate & rhythm and No Murmurs
Respiratory: Clear
Extremities: No Edema
Data Reviewed
-
Lab Results: Results Reviewed
Medications: Active Meds Reviewed
Chest X-Ray: Report Reviewed and Image Reviewed
ECG: Report Reviewed and Image Reviewed
--- NOTE | 2025-05-04 08:01 | PTCARENOTE ---
Patient resting in bed this morning, IV heparin infusing at 1500 units/hr with NTG gtt at 80mcg/min. Patient offers no complaints.
[2025-05-04] MEDS: ASPIR LOW (ENTERIC COATED) 81 MG PO (08:51)
[2025-05-04] MEDS: CRESTOR 20 MG PO (08:51)
[2025-05-04 08:52] LABS: Glucose - Point of Care 155 mg/dl (70-99)
[2025-05-04] MEDS: NOVOLOG FLEXPEN-LOW RESISTANCE 1 UNITS SC (08:53)
[2025-05-04] MEDS: TYLENOL 650 MG PO (09:04)
--- NOTE | 2025-05-04 09:11 | W.PN.CD ---
Today's Communication / Plan
-
continue heparin gtt with intensive monitoring of labs
continue nitro gtt
echo today
Impression / Plan
-
A/P: 64-year-old female with history of CAD status post stenting, hyperlipidemia, type 2 diabetes, who is here for worsening chest pain and positive troponin.
ACS/NSTEMI with recurrent LAD CAD on [facility] 05/02
- recent stenting of the mid LAD now with recurrent severe disease proximally, possible in part driven by spasm but not responsive to intracoronary nitroglycerine. Given single vessel LAD disease with recurrent high grade stenosis, young age, and
diabetic status, will plan for robotic FERRIS-LAD 05/05/25 vs 05/06/25
- Nitro drip for chest pain free at rest
- cont. heparin until CABG
- cont. asa, hold P2Y12
- will need aggressive secondary prevention of CAD with goal LDL<55 [place]
- will repeat TTE
Hyperlipidemia
- Continue statin, eventual goal LDL<55
Type 2 diabetes
- Per primary
Physical Exam
Vital Signs/Labs
Vital Signs
Temp Pulse Resp BP Pulse Ox
97.3 F 72 20 129/68 96
05/04/25 08:16 05/04/25 08:14 05/04/25 08:16 05/04/25 08:14 05/04/25 08:16
05/03/25 05/04/25 05/05/25
06:59 06:59 06:59
Actual Weight 184 lb 4.903 oz 183 lb 13.848 oz
05/03/25 05:11
05/04/25 03:54
PT 13.3 Sec (11.4-14.6) 05/04/25 03:54
INR 0.98 05/04/25 03:54
APTT 64.4 Sec (23.4-35.0) H 05/04/25 03:54
Magnesium 2.2 mg/dl (1.6-2.3) 05/03/25 05:11
Triglycerides 64 mg/dl (10-149) 05/01/25 08:07
LDL Cholesterol, Calc 16 mg/dl 05/01/25 08:07
VLDL Cholesterol, Calc 12 mg/dl (0-30) 05/01/25 08:07
HDL Cholesterol 59 mg/dl 05/01/25 08:07
LAB Results
05/01/25 05/02/25
09:00 02:11
Troponin I Cancelled 0.278 H*
Physical Exam
Cardiovascular: Rhythm & rate is regular, Pedal edema is absent, JVD pressure is normal, Systolic murmur absent and Diastolic murmur absent
Respiratory: Respiratory effort normal, Lungs clear to auscul., Wheeze Absent, Crackles Absent and Rhonchi Absent
Neuro/Psych: AO x 3
Data Reviewed
-
Date of Service: May 04, 2025
EKG: Other (tele sinus)
--- NOTE | 2025-05-04 10:05 | PTCARENOTE ---
Patient complaining of some discomfort left mid back area, she is not sure if it's the way she slept or the bed but rates it 4/. Medicated with tylenol PO.
[2025-05-04] MEDS: NITROSTAT (SUBLINGUAL) 0.4 MG SL (11:06)
[2025-05-04] MEDS: LOPRESSOR 2.5 MG IV (11:06)
[2025-05-04 11:09] LABS: APTT 99.6 Sec (23.4-35.0)
--- NOTE | 2025-05-04 11:15 | CM ---
Chart reviewed. Patient is waiting for MidCAB on 05/06. Patient is independent of ADLS, lives with her in a 3 STH, 3 ROCÍO, 0 DME. Plan is for the patient to return home with her and VN. CM to follow
[2025-05-04] MEDS: MORPHINE SULFATE 2 MG IV (11:20)
--- NOTE | 2025-05-04 11:20 | W.PN.UPDATE ---
Update Note
Progress Note Update
CValled to the bedside.
Sudden onset midsubsternal cp radiating to the arms 05/08.
RRR s1s2, lungs cta, she appears in moderate distress
Initial ECG is sinus tachycardia with NS ST depressions and ROCÍO in aVR.
Assessment recurrent cp
-
Initial HR sinus tachycardia, quite hypertensive.
This improved to 02/05 with bb, sl nitro and increase nitro gtt to NSR without st changes.
HR improved as did bp.
Given ongoing pain morphine given.
Further titration of the nitro gtt, lead to resolution of pain.
Echo being done
CCT 31 minutes
--- NOTE | 2025-05-04 11:40 | PTCARENOTE ---
Patient called nurse with 5-6/10 left sided chest burning. EKG done, BP 178/112-125, patient very anxious & tearful. TT to Dr. Klein and Lydia Schuster [facility], with copies of EKG. Pain progressed to 8/10 with pain down both arms. Patient given SL NTG
and 2.5mg IV lopressor as ordered. NTG titrated as per protocol and now running at 120mcg/min. Dr. Klein in to see the patient and morphine 2mg IV given. Patient now having echo done, 160/78-SR 86, on 2L NC pulse ox 96%. Keeping NPO for now,
IV heparin infusing.
[2025-05-04] MEDS: HEPARIN 25000 UNITS/250 ML IV (12:21)
--- NOTE | 2025-05-04 12:26 | W.PN.HOSP.TC ---
Today's Communication/Plan
-
Follow-up troponin
Add NovoLog with meals
Assessment / Plan
Assessment / Plan
Gen-AAOx3, NAD
HEENT-NC, AT, anicteric, clear oral mm
Neck-supple
CV-reg, no M, +S1/S2
Lungs-clear B/L
Abd-soft, NT, ND
Ext-no edema
Musculoskeletal-no cyanosis, clubbing
Skin-warm and dry
Neuro-grossly non-focal
Psych-calm, cooperative
NSTEMI (acute coronary syndrome) -chest pain recurrence today. Cardiology at the bedside. Nitroglycerin sublingual administered, placed on oxygen, IV morphine. Troponin sent. EKG shows normal sinus rhythm, nonspecific T wave abnormality worse in
the lateral leads.
- continue IV heparin, continue statin.
- hold Effient
- continue Nitro drip
Cardiac catheterization performed on 05/02 shows new high-grade stenosis in the proximal LAD with recurrent high-grade stenosis. Plan for robotic FERRIS to LAD bypass later this week per CT surgery.
Echocardiogram ordered.
DM2 with hyperglycemia -glucose 155 this morning. Daytime glucoses were over 200 yesterday, suspect related to prednisone, did receive 150 mg total in preparation for contrast exposure. Continue low resistance aspart scale.
BMI 28, weight loss recommended.
- Hold metformin for cardiac cath
- Farxiga ordered but now on hold per CT surgery
- HgbA1c 6.8%
Add NovoLog 4 units before meals. Continue low resistance NovoLog scale.
Hyperlipidemia
- continue statin
- maintained on Vascepa as outpatient
DVT proph: Heparin drip
Code Status: Full Code
Anticipated Discharge: > 48 hours
Subjective/Interval History
-
Date of Service: May 04, 2025
Patient seen and examined. Complaining of substernal chest pain.
Objective Data
-
Labs:
Laboratory Results
05/04/25 05/04/25
03:54 10:45
PT 13.3
INR 0.98
APTT 64.4 H 99.6 H
Sodium 142
Potassium 4.2
Chloride 113 H
Carbon Dioxide 21 L
BUN 21 H
Creatinine 0.6
Glucose 155 H
Calcium 8.8
Vital Signs:
Vital Signs
Temp Pulse Resp BP Pulse Ox
97.3 F 90 20 160/78 100
05/04/25 08:16 05/04/25 11:25 05/04/25 08:16 05/04/25 11:25 05/04/25 11:25
I&O
05/03/25 05/04/25 05/05/25
06:59 06:59 06:59
Intake Total 680 / 680 795 / 795
Output Total 400 / 400
Balance 280 / 280 795 / 795
Review of Systems
-
History Source: Patient
All other systems: Reviewed and negative
[2025-05-04 12:54] LABS: Glucose - Point of Care 177 mg/dl (70-99)
[2025-05-04 13:06] LABS: Troponin I 0.150 ng/ml
[2025-05-04] MEDS: NOVOLOG FLEXPEN-LOW RESISTANCE SC ×2 (14:19→19:41)
--- NOTE | 2025-05-04 14:32 | W.CVOR.SURPR ---
CVOR Surgeon Immed Pre Op
-
I have examined this patient prior to performance of the scheduled procedure.
The patient's condition is unchanged from the time of the dictated/written History and
Physical and the patient is able to undergo the scheduled procedure.
Experiencing crescendo chest pain, requiring high concentration of nitro, hemodynamically unchanged. TEG with only 8% inhibition. Plan to move forward today with surgery.
[2025-05-04] MEDS: PROTONIX 40 MG PO (14:35)
[2025-05-04] MEDS: BACTROBAN 2% OINTMENT 1 APPLIC NASAL ×2 (14:35→21:02)
[2025-05-04] MEDS: MAGNESIUM OXIDE 500 MG PO (14:35)
[2025-05-04] MEDS: LOPRESSOR 25 MG PO (14:35)
--- NOTE | 2025-05-04 14:43 | PTCARENOTE ---
Family in with the patient, clip/prep completed and pre op meds given. CV OR staff transporting the patient to the OR.
[2025-05-04 15:32] LABS: ACT+ - POC 118 Seconds (82-134)
--- NOTE | 2025-05-04 15:43 | CM ---
Reviewed chart. Mrs. Cruz is in the operating room today. Prior to admission she resides in a three story home with three steps to enter. Prior to admission she was independent with adls. She does not have any DME in the home. Medical work-up
in progress. The discharge plan is to return home with her spouse and [facility] when medically stable.
[2025-05-04 15:49] LABS: Urine Character Clear (Clear)
[2025-05-04 17:02] LABS: B.E. - POC -1.9 mmol/L; Glucose - POC 176 mg/dl (70-99); HCO3 - POC 23 mmol/L (21-28); Hematocrit - POC 30 % PCV (37-47); Hemodilution- POC No; Hemoglobin Calculated - POC 10.2; Ionized Calcium - POC 1.21 mmol/L (1.15-1.33); Lactate - POC 0.77 mmol/L (0.36-0.75); O2 Saturation %Calculated-POC 96.2 % (94-98); PCO2 - POC 40 mmHg (35-48); PO2 - POC 85 mmHg (83-108); POC Comment PRE; Potassium - POC 3.7 mmol/L (3.5-5.1); Sodium - POC 143 mmol/L (136-145); Specimen Type - POC Arterial; pH - POC 7.37 (7.35-7.45)
[2025-05-04 17:09] LABS: ACT+ - POC 444 Seconds (82-134)
[2025-05-04 18:06] LABS: B.E. - POC -5.9 mmol/L; Glucose - POC 208 mg/dl (70-99); HCO3 - POC 21 mmol/L (21-28); Hematocrit - POC 27 % PCV (37-47); Hemodilution- POC No; Hemoglobin Calculated - POC 9.3; Ionized Calcium - POC 1.16 mmol/L (1.15-1.33); Lactate - POC 0.75 mmol/L (0.36-0.75); O2 Saturation %Calculated-POC 97.1 % (94-98); PCO2 - POC 44 mmHg (35-48); PO2 - POC 104 mmHg (83-108); POC Comment POST HEPARIN; Potassium - POC 3.9 mmol/L (3.5-5.1); Sodium - POC 141 mmol/L (136-145); Specimen Type - POC Arterial; pH - POC 7.28 (7.35-7.45)
[2025-05-04 18:10] LABS: ACT+ - POC 120 Seconds (82-134)
[2025-05-04 18:16] LABS: B.E. - POC -3.3 mmol/L; Glucose - POC 182 mg/dl (70-99); HCO3 - POC 22 mmol/L (21-28); Hematocrit - POC 27 % PCV (37-47); Hemodilution- POC Yes; Hemoglobin Calculated - POC 9.1; Ionized Calcium - POC 1.13 mmol/L (1.15-1.33); Lactate - POC 0.69 mmol/L (0.36-0.75); O2 Saturation %Calculated-POC 97.9 % (94-98); PCO2 - POC 41 mmHg (35-48); PO2 - POC 109 mmHg (83-108); POC Comment POST PROTAMINE; Potassium - POC 3.8 mmol/L (3.5-5.1); Sodium - POC 143 mmol/L (136-145); Specimen Type - POC Arterial; pH - POC 7.34 (7.35-7.45)
--- NOTE | 2025-05-04 18:23 | W.PN.CT.SURG ---
CT Surgery Operative Note
-
CARDIAC SURGERY OPERATIVE REPORT
Preoperative Diagnosis: Coronary Artery Disease with proximal LAD involvement and recent stent with in-stent restenosis and new proximal LAD disease
Postoperative Diagnosis: Same
Procedure(s) Performed:
1. Robotic assisted MIDCAB (single-vessel bypass FERRIS in situ to LAD)
2. Robotic assisted harvest of internal mammary artery with anterolateral mini thoracotomy for CABG
3. Transesophageal echocardiography
4. Transonic Flowprobe assessment of FERRIS graft
Date of Surgery: 05/04/2025
Comorbidities:
1. Coronary artery disease involving the proximal LAD
2. NSTEMI
3. Peripheral artery disease
4. Dyslipidemia
5. Diabetes
6. History of PCI and stenting in the distant past as well as recent past
7. Obese
Attending Surgeon: Bruce Mejia MD, MS
Assistants: Bruce Gutierrez PA-C (present and necessary to registered nurse first assistant, exchanging robotic instruments, retraction, suction, exposure, suture management, and wound closure under my direction)
Anesthesiology: Iván Lira MD and Everette Bell CRNA
Scrub and Circulating RNs: Shell Bowie RN, Konrad Marsh RN
Band Bias Machine Operator: Jeromy Palacio CCP
Anesthesia: GETA
EBL: per perfusion records
Products: None
Indication(s) for Procedures: This is a 64-year-old female who had a recent stent in December 2024. She developed chest pain for approximately 3 weeks and was requiring more sublingual nitroglycerin for symptom relief. She underwent admission to the
hospital and was found to have an NSTEMI and underwent a recent cath which demonstrated new proximal LAD disease as well as some in-stent restenosis. The STS risk was discussed with the patient and the shared decision making was to pursue a
single-vessel bypass using his mammary artery to his LAD via a mini invasive approach.
Conduit(s) Quality/Internal Diameter:
FERRIS -excellent was taken down as a pedicle as there was dense scarring along the chest wall with adhesion from the vein to the artery, flow probe analysis, 45 cc/min, PI of 2.8
Target(s) Quality/Internal Diameter:
LAD -excellent, easily accommodated 2.0 mm shunt, I was able to identify the stent proximally and use that as a landmark
Findings: Left ventricular ejection fraction preoperatively was 60% with no significant regional wall motion abnormalities. Following surgery EF remained the same at 60%. There were no new regional wall motion abnormalities at the inclusion of the
case. The FERRIS was harvested in a skeletonized fashion. The mammary graft was verified with Doppler probe to have excellent signals. She had some adhesions of her lung to the chest wall and overlying the mammary artery. This was taken down using
electrocautery.
Description of Procedure: The patient was taken to the operating room. Their identity and procedure to be performed were verified and they were positioned supine on the operating table. Induction via general anesthesia with endotracheal intubation
was performed and central venous access and arterial monitoring were inserted. A preoperative transesophageal echocardiogram was performed to assess cardiac function and valvular function. The patient was then prepped and draped from chin to feet in
a sterile fashion and positioned with left side bumped up and left arm down. A preoperative time-out was performed with all members of the team present. A Veress needle was used to enter the chest after stopping ventilation with the left lung
verified by anesthesia. We started with slow pressure insufflation which they tolerated. An 8 mm port was inserted in the fourth intercostal space laterally and a camera was inserted verifying no intrathoracic iatrogenic injuries. 2 additional
ports(8 mm and 8mm) were placed along the midaxillary line on either side of the camera port. Single 12 mm air seal port was used for the retail event and sales assistant to pass instruments and sutures. The robotic platform was then docked and targeted towards the
mammary. A posterior pericardiotomy was created to facilitate drainage. The mammary was harvested in a skeletonized fashion. Once sufficient length was obtained, an anterior pericardiotomy was created to identify the distal target. This was marked
with a marker robotically. Full heparinization was given (a total of 35,000 units). 4 Hem-o-brianda clips were used to occlude and divide the mammary distally at its bifurcation, and a single silk suture and clip was used to secure the mammary to the
pericardium overlying the LAD target. The robot platform was then undocked and the patient and a left anterior thoracotomy was created over the target vessel. Upon entering the thoracic cavity the mammary and LAD were visible. A thoracotomy
retractor was placed to facilitate exposure and a pericardial well was created. The ACT was confirmed to be over 400.
The cardiac suction stabilizer was used to isolate the LAD target. The distal end of the mammary was prepped and incised on the underbelly. We verified orientation and length of the MAGALYS and found brisk flow. A coronary arteriotomy was created and
enlarged with coronary rocha scissors. A 2mm shunt was inserted to facilitate exposure and continued [place] coronary perfusion. An end-to-side anastomosis was created with a 7-0 prolene. The bulldog on the mammary was removed which demonstrated
excellent graft flow. The shunt was then remove and demonstrated excellent [place] flow. Appropriate hemostasis was confirmed. The mammary graft was inspected and was free from kinking or twisting and flowprobe evaluation demonstrated good flow and
PI. A test dose of protamine was administered and the patient was monitored for any adverse reaction before resuming protamine. A 24F alex drain into the pericardium and through the posterior pericardiotomy into the left chest. Fascia was
approximated with #1 vicryl suture. Local analgesia was administered to the surgical sites. The subcutaneous, dermis and epidermis were closed in layers in a running fashion. The skin wound was cleansed and dressed.
All instrument, sponge, and needle counts were confirmed to be correct x 2 at the end of the operation. The patient was transferred to the cardiac intensive care unit extubated in critical but stable condition.
I, Dr. Bruce Mejia, was present, scrubbed for, and performed all critical elements of this procedure.
Bruce Mejia MD, MS
Cardiothoracic Surgeon
[facility] [address]
This operative dictation was created using the [employer] dictation system. Please excuse any grammatical, typographical, or 'sound alike' errors
[2025-05-04 18:50] LABS: B.E. -2.5 mmol/L; HCO3 23.2 mmol/L (21-28); O2 Saturation % 97.9 % (94-98); PCO2 43 mmHg (32-35); PO2 87 mmHg (83-108); Potassium 3.9 mMOL/L (3.5-5.1); Sodium 138 mMOL/L (136-145)
[2025-05-04 18:53] LABS: Glucose - Point of Care 198 mg/dl (70-99)
[2025-05-04 18:53] LABS: Hematocrit 30.9 % (37.0-47.0); Hemoglobin 10.5 g/dL (12.0-16.0); Platelet Count 209 10^3/uL (130-400)
[2025-05-04 19:01] LABS: INR 1.09; PT 14.6 Sec (11.4-14.6)
[2025-05-04 19:06] LABS: Blood Urea Nitrogen 18 mg/dl (7-17); Estimated Creatinine Clearance 104 ml/min; Glucose 180 mg/dl (70-99); Magnesium 2.0 mg/dl (1.6-2.3)
[2025-05-04] MEDS: KCL 50 IV ×2 (19:10→21:02)
[2025-05-04] MEDS: ANCEF 10 IV ×2 (19:13)
[2025-05-04] MEDS: NEURONTIN PO (19:13)
[2025-05-04] MEDS: PACERONE PO (19:13)
[2025-05-04] MEDS: NSS 500 IV (19:14)
--- NOTE | 2025-05-04 19:15 | PTCARENOTE ---
assumed care of pt from previous RN. pt drowsy s/p CVOR, able to orient self x4. R IJ cordis w/ SLIC. L radial a-line. all lines leveled, zeroed, flushed. SR w/ 1st degree AVB on tele-monitor. POX 91% on [address] x1 to -20cm wall suction, draining
sanguineous drainage. abd s/n, hypoactive BS. ward catheter draining clear, yellow colored urine. all surgical sites stable, CDI. PIV intact. see worklist for complete nursing assessment, interventions, VS, and I&Os.
[2025-05-04] MEDS: SENOKOT-S PO (19:35)
--- NOTE | 2025-05-04 19:45 | PTCARENOTE ---
pt placed on 8 L midflow NC by RT. POX 92-94%. pts family at bedside.
[2025-05-04] MEDS: OFIRMEV 100 IV (20:09)
[2025-05-04 20:16] LABS: Glucose - Point of Care 182 mg/dl (70-99)
[2025-05-04 21:09] LABS: Glucose - Point of Care 153 mg/dl (70-99)
[2025-05-04] MEDS: TYLENOL PO (21:58)
[2025-05-04] MEDS: NEURONTIN 100 MG PO (21:58)
[2025-05-04] MEDS: PACERONE 200 MG PO (21:58)
[2025-05-04] MEDS: ROXICODONE 5 MG PO (21:58)
[2025-05-04 22:10] LABS: Glucose - Point of Care 145 mg/dl (70-99)
[2025-05-04 22:24] LABS: Hematocrit 33.6 % (37.0-47.0); Hemoglobin 11.3 g/dL (12.0-16.0); Platelet Count 253 10^3/uL (130-400)
[2025-05-04] MEDS: CARDENE 200 IV (22:25)
[2025-05-04] MEDS: DILAUDID 0.25 MG IV (22:27)
[2025-05-04 23:09] LABS: Glucose - Point of Care 135 mg/dl (70-99)
[2025-05-04] MEDS: FLEXERIL 5 MG PO (23:16)
[2025-05-04] MEDS: LOW STRENGTH ASPIRIN 81 MG PO (23:16)
[2025-05-05] VITALS (19 sets, daily range): BP systolic 94–125; BP diastolic 48–104; PULSE 78; O2SAT 92–97; BMI 29.3
--- NOTE | 2025-05-05 | PTCARENOTE ---
assessment remains unchanged. VSS. CT drainage WNL. U/O >0.5ml/kg/h. see worklist for VS, I&Os, and gtt titrations.
[2025-05-05 01:09] LABS: Glucose - Point of Care 118 mg/dl (70-99)
[2025-05-05] MEDS: ROXICODONE 2.5 MG PO ×3 (01:16→10:45)
[2025-05-05] MEDS: ANCEF 5 IV ×3 (01:16→16:29)
[2025-05-05] MEDS: CARDENE 200 IV (02:05)
[2025-05-05 03:05] LABS: Glucose - Point of Care 88 mg/dl (70-99)
[2025-05-05 03:19] LABS: Hematocrit 33.4 % (37.0-47.0); Hemoglobin 11.3 g/dL (12.0-16.0); Mean Corp Hgb Conc. 33.8 g/dL (33.0-37.0); Mean Corpuscular Volume 85.4 fL (81.0-99.0); Platelet Count 250 10^3/uL (130-400); Red Cell Dist. Width 13.7 % (11.5-14.5)
--- NOTE | 2025-05-05 03:30 | PTCARENOTE ---
no acute changes. VSS. AM labs collected and sent. see worklist for VS, I&Os, and gtt titrations.
[2025-05-05 03:46] LABS: Blood Urea Nitrogen 20 mg/dl (7-17); Calcium 8.8 mg/dl (8.4-10.2); Carbon Dioxide 23 mmol/L (22-30); Chloride 111 mmol/L (98-107); Estimated Creatinine Clearance 104 ml/min; Glucose 110 mg/dl (70-99); Magnesium 2.1 mg/dl (1.6-2.3); Potassium 4.4 mmol/L (3.5-5.1); Sodium 140 mmol/L (135-145); eGFR > 60.00
--- NOTE | 2025-05-05 04:01 | W.PN.CT ---
Today's Communication / Plan
-
pod#1
- wean Cardene off
- DC Solomon Rael
- keep mediastinal chest tube
- continue ASA/Plavix, Crestor, metoprolol
- resume vascepa on discharge
- Insulin infusion today>diabetic Automation Controls Expert following for transition to home MFM/Farxiga
Assessment / Plan
-
Robotic assisted MIDCAB x 1 (FERRIS in situ to LAD) by Dr Mejia 05/04/25-pod#1
1. Coronary artery disease involving the proximal LAD--S/p PCI with stent to LAD in 2015 and again in on 12/2024, on Effient
2. NSTEMI (peak trop 0.52)
3. Peripheral artery disease
4. Dyslipidemia
5. Diabetes (A1C 6.8)
6. Myasthenia gravis S/P thymectomy, 1999
7. Hx RLE vein stripping
- Acute postop blood loss anemia
Subjective
Procedure
Robotic assisted MIDCAB x 1 (FERRIS in situ to LAD) by Dr Mejia 05/04/25-pod#1
-
Date of Service: May 05, 2025
Objective Data
-
Lab Results
05/05/25 03:03
05/05/25 03:03
PT 14.6 Sec (11.4-14.6) 05/04/25 18:43
INR 1.09 05/04/25 18:43
APTT 99.6 Sec (23.4-35.0) H 05/04/25 10:45
Vital Signs
Vital Signs
Temp Pulse Resp BP Pulse Ox
98.4 F 89 17 103/62 93
05/05/25 03:00 05/05/25 03:45 05/05/25 03:45 05/05/25 03:00 05/05/25 03:45
CT Intake/Output/Weight
05/04/25 05/04/25 05/05/25
06:59 18:59 06:59
Intake Total 795 / 795 22 / 781.0 759.0 / 781.0
Output Total 155 / 1000 845 / 1000
Balance 795 / 795 -133 / -219.0 -86.0 / -219.0
SaO2: 93
Physical Exam
-
General: AOx3
Cardiovascular: Regular rate & rhythm
Respiratory: Clear
Sternum: Other (left anterior mini thoracotomy stable)
Incision: Clean, Dry and Intact
Extremities: No Edema
[2025-05-05] MEDS: TYLENOL 1000 MG PO ×3 (05:03→21:02)
[2025-05-05] MEDS: LOPRESSOR 12.5 MG PO ×2 (05:03→06:08)
[2025-05-05 05:11] LABS: Glucose - Point of Care 148 mg/dl (70-99)
[2025-05-05 07:09] LABS: Glucose - Point of Care 145 mg/dl (70-99)
--- NOTE | 2025-05-05 08:00 | PTCARENOTE ---
assumed care of pt from previous RN. walking rounds completed. in chair at time of assessment. AAOx3. NSR HR 70s. POX 93% on RA. CT x1 to -20cm wall suction, draining sanguineous drainage. + BS. DTV. all surgical sites stable, CDI. cordis, A line
and PIV intact. will contiue to monitor.
[2025-05-05] MEDS: PROTONIX 40 MG PO (09:18)
[2025-05-05] MEDS: NEURONTIN 100 MG PO ×3 (09:18→21:02)
[2025-05-05] MEDS: LOW STRENGTH ASPIRIN 81 MG PO (09:18)
[2025-05-05] MEDS: MAGNESIUM OXIDE 500 MG PO ×2 (09:18→21:02)
[2025-05-05] MEDS: CRESTOR 20 MG PO (09:18)
[2025-05-05] MEDS: SENOKOT-S 1 TABLET PO ×2 (09:19→21:02)
[2025-05-05] MEDS: PLAVIX 75 MG PO (09:20)
[2025-05-05] MEDS: PACERONE 200 MG PO ×3 (09:21→21:02)
[2025-05-05] MEDS: NOVOLOG FLEXPEN 4 UNITS SC ×3 (09:26→18:18)
[2025-05-05 09:29] LABS: Glucose - Point of Care 125 mg/dl (70-99)
[2025-05-05] MEDS: LASIX 40 MG IV (09:45)
[2025-05-05] MEDS: KCL 10 MEQ PO (09:45)
[2025-05-05] MEDS: BACTROBAN 2% OINTMENT 1 APPLIC NASAL ×2 (09:45→21:01)
--- NOTE | 2025-05-05 10:09 | W.PN.CD ---
Today's Communication / Plan
-
hemodynamically stable. In NSR
currently comfortable and in chair. Chest tube intact
Post op car per CT surgery
Impression / Plan
-
A/P: 64-year-old female with history of CAD status post stenting, hyperlipidemia, type 2 diabetes, who is here for worsening chest pain and positive troponin.
ACS/NSTEMI with recurrent LAD CAD on [facility] 05/02
- recent stenting of the mid LAD now with recurrent severe disease proximally,. Patient underwent CABG FERRIS-LAD 05/05/25
- Hemodynamically stable and in sinus rhythm. ECG with anterior T wave inversions.
- Continue postoperative care directed by CT surgery
Vascular ultrasound 05/03/2025
Hyperlipidemia
- Continue statin, eventual goal LDL<55
Type 2 diabetes
- Per primary
Physical Exam
Vital Signs/Labs
Vital Signs
Temp Pulse Resp BP Pulse Ox
97.8 F 85 18 94/58 97
05/05/25 09:00 05/05/25 09:00 05/05/25 05:30 05/05/25 07:06 05/05/25 09:00
05/04/25 05/05/25 05/06/25
06:59 06:59 06:59
Actual Weight 83.4 kg 83.5 kg
05/05/25 03:03
05/05/25 03:03
PT 14.6 Sec (11.4-14.6) 05/04/25 18:43
INR 1.09 05/04/25 18:43
APTT 99.6 Sec (23.4-35.0) H 05/04/25 10:45
Magnesium 2.1 mg/dl (1.6-2.3) 05/05/25 03:03
Triglycerides 64 mg/dl (10-149) 05/01/25 08:07
LDL Cholesterol, Calc 16 mg/dl 05/01/25 08:07
VLDL Cholesterol, Calc 12 mg/dl (0-30) 05/01/25 08:07
HDL Cholesterol 59 mg/dl 05/01/25 08:07
LAB Results
05/04/25
12:26
Troponin I 0.150 H*
Physical Exam
Constitutional: No acute distress
Cardiovascular: Rhythm & rate is regular
Respiratory: Wheeze Absent
GI: Non tender
Neuro/Psych: Alert
Data Reviewed
-
Date of Service: May 05, 2025
Medical Decision Making: Reviewed Test Results
EKG: Report Reviewed by me
X-Ray/CT/US/MRI/NUC/PET: Report Reviewed by me
Labs: Labs Reviewed by me
--- NOTE | 2025-05-05 10:44 | W.PN.ANS.POP ---
Anesthesia Post Operative
- Anesthesia Post Op Note
Vital Signs Stable-See Nursing Note: Yes
Airway Patent: Yes
Adequate Pain Control: Yes
Change in Mental Status: No
Current Postoperative Nausea & Vomiting: No
Anesthesia Complications: No
General Anesthetic Recall: No
Unplanned Admission: No
Post Op Hydration Adequate: Yes
--- NOTE | 2025-05-05 10:57 | PN.DE.MGMTRT ---
Insulin Management
- -
05/05/2025 Diabetes Management Consult
Patient admitted 04/30 with CP - 05/02 cardiac cath, 05/04 robotic MIDCABG x 1. PMH CAD, s/p stent 01/21, diabetes, myasthenia gravis with Thymectomy. Prior to admission was taking Farxiga 10 mg daily, 1000 mg metformin BID. A1C 6.8%, cr .5, eGFR > 60.
POD 1 s/p robotic CABG x 1. Patient is awake alert and oriented oob in chair, able to discuss diabetes care. Family at bedside very supportive. Patient states she sees an machinery cleaner. Has tried Mounjaro and Wegovy, but stopped due to side
effects. Currently receiving critical care glycemic protocol insulin infusion at 2.3 to 3.5 units of insulin per hour. Will continue insulin infusion today due to high insulin requirements. Will assess in AM for readiness to transition off of
insulin infusion to oral regimen.
Patient and family request dietitian consult.
Discussed with nurse.
Will follow.
Diabetes History
- -
Type of Diabetes: 2
Pre-Admission Diabetes Regimen
05/04/25 05/05/25
18:43 03:03
Creatinine 0.5 L 0.5 L
Lab Results
Hemoglobin A1c 6.8 % (4.0-5.6) H 05/01/25 08:07
Insulin Pump Settings
IP Diabetes Regimen
05/04/25 05/04/25 05/04/25
12:53 18:42 18:43
Glucose 180 H
POC Glucose 177 H 198 H
05/04/25 05/04/25 05/04/25
20:15 21:08 22:07
Glucose
POC Glucose 182 H 153 H 145 H
05/04/25 05/05/25 05/05/25
23:08 01:08 03:02
Glucose
POC Glucose 135 H 118 H 88
08/04/2205/05/25 05/05/25
03:03 05:10 07:07
Glucose 110 H
POC Glucose 148 H 145 H
05/05/25
09:28
Glucose
POC Glucose 125 H
Meal type: Lunch
Patient Education
--- NOTE | 2025-05-05 11:22 | CM ---
Reviewed chart. Met with and Mrs. Cruz and her sister to review discharge plans. She states she is feeling well. She states she ambulated to the bathroom and to the nurses station today. She states prior to admission she resides with her
spouse in a three story home with three steps to enter. She states she has a bedroom and full bathroom on the first floor. She states prior to admission she was going up a full flight of steps to get to the bedroom/full bathroom that she currently
is using. She states prior to admission she was independent with ambulation and adls.. She states she does not have any DME in the home. She states she has a prescription plan and uses [facility]. We reviewed [facility] with her. At this point
she feels she will not need [facility] Services. She states her spouse will be home to assist in his care if needed. Medical work-up in progress. The discharge plan is to return home with her spouse when medically stable.
[2025-05-05 12:28] LABS: Glucose - Point of Care 237 mg/dl (70-99)
[2025-05-05] MEDS: NOVOLIN R INSULIN INFUSION 100 IV (12:45)
--- NOTE | 2025-05-05 12:57 | PTCARENOTE ---
d/c chest tubes withut issue.
--- NOTE | 2025-05-05 13:44 | CON.INTV ---
Consultation
Consultation Request
Date/Time Consultation Requested: 05/05/2025
Date/Time Consultation Performed: 05/05/2025
Requesting Provider: Dr. Mejia
Performing Provider: Dr. Herbert Wiggins
Reason for Consultation: Status post robotic assisted MIDCAB
Medical History
-
Chief Complaint: Status post coronary by
History of Present Illness:
64-year-old woman with history of coronary artery disease, recent stent placement in December 2024. Patient developed chest pain, found to have non-ST elevation myocardial infarction. Cardiac catheterization demonstrated proximal LAD disease as well
as in-stent restenosis.
Patient was deemed candidate for revascularization. Underwent single coronary artery bypass on 05/04/2025. Transferred to critical care unit for postoperative care
Past Medical History
Past Medical History: Other (See assessment and plan)
Social History
Tobacco: Non-smoker
Alcohol: Occasional
Drug: None
Family History
Family History: Reviewed & Not Pertinent
Allergies / Home Medications
Allergies
Allergy/AdvReac Type Severity Reaction Status Date / Time
Iodinated Contrast Media Allergy Itching Verified 04/30/25 15:51
shellfish derived Allergy Itching Verified 04/30/25 15:51
Home Medications
�Medication �Instructions �Recorded �Confirmed �Last Taken �Type
aspirin 81 mg tablet,delayed 81 mg PO DAILY Blood Clot 01/04/25 04/30/25 04/30/25 08:00 History
release Prevention/Tx
calcium 500 mg (as 1 tab PO DAILY Supplement 01/04/25 04/30/25 04/30/25 08:00 History
carbonate)-vitamin D3 10 mcg (400
unit) tablet (Calcium 500 + D)
coQ10 (ubiquinol) 100 mg capsule 100 mg PO DAILY Supplement 01/04/25 04/30/25 04/30/25 08:00 History
icosapent ethyl 1 gram capsule 2 g PO BID High Cholesterol 01/04/25 04/30/25 04/30/25 08:00 History
(Vascepa)
metformin 500 mg tablet,extended 1,000 mg PO BID@08,17 Diabetes 01/04/25 05/01/25 04/30/25 08:00 History
release 24 hr
therapeutic multivitamin 1 tab PO DAILY Supplement 01/04/25 04/30/25 01/04/25 History
prasugrel HCl 10 mg tablet 10 mg PO DAILY #30 tabs 01/05/25 04/30/25 04/30/25 08:00 Rx
rosuvastatin 20 mg tablet 20 mg PO DAILY 30 days #30 tabs 01/05/25 04/30/25 Unknown Rx
dapagliflozin propanediol 10 mg 10 mg PO DAILY Heart 04/30/25 04/30/25 04/30/25 08:00 History
tablet (Farxiga) Disease/Condition
nitroglycerin 400 mcg/spray 1 spray sublingual [id number] PRN 04/30/25 04/30/25 04/30/25 14:00 History
translingual Chest Pain
Review of Systems
Vitals / Labs / Diagnostic Testing
Vital Signs
Temp Pulse Resp BP Pulse Ox
97.8 F 85 18 94/58 97
05/05/25 09:00 05/05/25 09:00 05/05/25 05:30 05/05/25 07:06 05/05/25 09:00
Lab Data
05/05/25 03:03
05/05/25 03:03
Laboratory Results
05/04/25
18:43
PT 14.6
INR 1.09
pH 7.34 L
pCO2 43 H
pO2 87
HCO3 23.2
O2 Delivery Level
Diagnostic Testing:
Assessment
-
64-year-old woman with history of coronary artery disease, recent stent placement in December 2024. Patient developed chest pain, found to have non-ST elevation myocardial infarction. Cardiac catheterization demonstrated proximal LAD disease as well
as in-stent restenosis.
Patient was deemed candidate for revascularization. Underwent single coronary artery bypass on 05/04/2025. Transferred to critical care unit for postoperative care
Status post robotic assisted MIDCAB (single-vessel bypass FERRIS in situ to LAD)-05/04/2025
Coronary Artery Disease with proximal LAD involvement and recent stent with in-stent restenosis and new proximal LAD disease
Conditions present prior admission:
Coronary artery disease
Peripheral arterial disease
Dyslipidemia
Type 2 diabetes
History of PCI with a stent
obesity
Myasthenia gravis status post thymectomy
Assessment and plan:
Postoperative day 1
Extubated on low rate supplemental oxygen
Encourage incentive spirometry
Continue analgesia
Chest x-ray without any collections
-
Anemia noted-no evidence of acute bleeding
Follow H&H serially
Hemodynamics -acceptable-off vasoactive drugs
Normal renal function
Adequate urinary output
Left chest tube with no excessive drainage-no air leak.
Chest x-ray reviewed: With no pneumothorax or fluid collections.
Advance diet as tolerated
Head of the bed elevation
Glycemic control per protocol
DVT prophylaxis when safe from the surgical perspective.
Excellent clinical progression post single robotic assisted coronary artery bypass. Continue postoperative care.
No additional critical care recommendations per
Data reviewed:
Chest x-ray 05/05/2025: Left basilar opacity likely atelectasis. Left chest tube in place with no pneumothorax
Echocardiogram 05/04/2025:
Normal LVEF. Ejection fraction 61%. Hypokinesis of the mid, apical anterior septum and mid and apical inferior septum. Mild AR.
Cardiac catheterization report 04/30/2025:
1. Coronary artery disease as described with new high-grade stenosis in the proximal LAD proximal to the previously placed stent and evidence of mild-moderate ISR within the recently placed stent. The appearance of the lesion is suggestive of spasm
although there was no improvement with intracoronary nitroglycerin.
:
[2025-05-05] MEDS: FERRLECIT 110 MG IV (15:17)
[2025-05-05] MEDS: NEURONTIN PO (15:18)
[2025-05-05] MEDS: TYLENOL PO (15:18)
[2025-05-05 15:19] LABS: Glucose - Point of Care 136 mg/dl (70-99)
[2025-05-05] MEDS: NSS IV (15:36)
[2025-05-05 16:42] LABS: Glucose - Point of Care 189 mg/dl (70-99)
--- NOTE | 2025-05-05 17:00 | PTCARENOTE ---
Walking halls independently. Tolerating activity. VSS.
[2025-05-05 18:14] LABS: Glucose - Point of Care 172 mg/dl (70-99)
[2025-05-05 19:24] LABS: Glucose - Point of Care 192 mg/dl (70-99)
--- NOTE | 2025-05-05 20:00 | PTCARENOTE ---
assumed care of pt from previous RN. pt A&Ox4, resting in chair at time of assessment. family at bedside. SR on tele-monitor. POX 93% on RA. abd s/n, +BS. voiding clear, yellow colored urine. all surgical sites, stable, CDI. R IJ cordis w/ KVO. PIV
intact. see worklist for complete nursing assessment, interventions, VS, and I&Os.
[2025-05-05 20:59] LABS: Glucose - Point of Care 247 mg/dl (70-99)
[2025-05-05] MEDS: LOPRESSOR 25 MG PO (21:02)
[2025-05-05 22:04] LABS: Glucose - Point of Care 189 mg/dl (70-99)
--- NOTE | 2025-05-05 23:00 | PTCARENOTE ---
report received from previous RN, walking rounds done. pt in bed, AA&Ox4, denies any pain at this time. SR on monitor, HR 60s. POX 94% on RA. abd s/n, +BS. all surgical sites, stable, CDI. R IJ cordis w/ KVO. PIV intact. see worklist for complete
nursing assessment, interventions, VS, and I&Os.
[2025-05-05 23:13] LABS: Glucose - Point of Care 144 mg/dl (70-99)
[2025-05-06 02:14] LABS: Glucose - Point of Care 71 mg/dl (70-99)
[2025-05-06 02:15] VITALS: BP 114/55
[2025-05-06 02:27] LABS: Hematocrit 34.1 % (37.0-47.0); Hemoglobin 11.3 g/dL (12.0-16.0); Mean Corp Hgb Conc. 33.1 g/dL (33.0-37.0); Mean Corpuscular Volume 86.1 fL (81.0-99.0); Platelet Count 277 10^3/uL (130-400); Red Cell Dist. Width 14.1 % (11.5-14.5)
[2025-05-06 02:50] LABS: Blood Urea Nitrogen 20 mg/dl (7-17); Calcium 9.0 mg/dl (8.4-10.2); Carbon Dioxide 25 mmol/L (22-30); Chloride 111 mmol/L (98-107); Estimated Creatinine Clearance 104 ml/min; Glucose 62 mg/dl (70-99); Magnesium 2.4 mg/dl (1.6-2.3); Potassium 4.3 mmol/L (3.5-5.1); Sodium 142 mmol/L (135-145); eGFR > 60.00
[2025-05-06 04:23] LABS: Glucose - Point of Care 144 mg/dl (70-99)
[2025-05-06 05:41] LABS: Glucose - Point of Care 133 mg/dl (70-99)
[2025-05-06 06:00] VITALS: BMI 29.0
--- NOTE | 2025-05-06 06:00 | W.PN.CT ---
Today's Communication / Plan
-
pod#2
- hemodynamically stable
- CT drained 10ml in past 12hrs, 10ml in 24hrs
- remains on 2LNC, wean as tolerates
- voiding
- continue ASA/Plavix, Crestor, metoprolol
- resume vascepa on discharge
- Insulin infusion continued yesterday >diabetic Meter Reader Inspector following for transition to home MFM/Farxiga
- chest PT / IS / OOB
- PT/OT
-dispo planning
Assessment / Plan
-
Robotic assisted MIDCAB x 1 (FERRIS in situ to LAD) by Dr Mejia 05/04/25-pod#2
1. Coronary artery disease involving the proximal LAD--S/p PCI with stent to LAD in 2015 and again in on 12/2024, on Effient
2. NSTEMI (peak trop 0.52)
3. Peripheral artery disease
4. Dyslipidemia
5. Diabetes (A1C 6.8)
6. Myasthenia gravis S/P thymectomy, 1999
7. Hx RLE vein stripping
- Acute postop blood loss anemia
Discussed patient care with: Care Team
Subjective
Procedure
Robotic assisted MIDCAB x 1 (FERRIS in situ to LAD) by Dr Mejia 05/04/25-pod#2
-
Date of Service: May 06, 2025
Objective Data
-
Lab Results
05/05/25 03:03
05/05/25 03:03
PT 14.6 Sec (11.4-14.6) 05/04/25 18:43
INR 1.09 05/04/25 18:43
APTT 99.6 Sec (23.4-35.0) H 05/04/25 10:45
Vital Signs
Vital Signs
Temp Pulse Resp BP Pulse Ox
97.8 F 73 16 115/53 93
05/05/25 15:00 05/05/25 19:26 05/05/25 19:40 05/05/25 19:26 05/05/25 19:[address]
CT Intake/Output/Weight
05/05/25 05/05/25 05/06/25
06:59 18:59 06:59
Intake Total 825.4 / 860.9 55.6 / 72.6 17 / 72.6
Output Total 1165 / 1330
Balance -339.6 / -469.1 45.6 / 62.6 17 / 62.6
SaO2: 93
Physical Exam
-
General: Awake, Oriented and AOx3
Cardiovascular: Regular rate & rhythm
Respiratory: Clear
Sternum: Stable
Incision: Clean, Dry and Intact
Extremities: Edema +1
Data Reviewed
-
Lab Results: Results Reviewed
Medications: Active Meds Reviewed
Chest X-Ray: Image Reviewed
Vital Signs / Labs
-
Vital Signs and Labs:
Temp Pulse Resp BP Pulse Ox
97.8 F 63 18 114/55 94
05/06/25 02:15 05/06/25 04:00 05/06/25 02:15 05/06/25 02:15 05/06/25 02:15
05/06/25 02:11
05/06/25 02:11
05/02/25 05/05/25 05/05/25
15:38 07:07 09:28
WBC
RBC
Hgb
Hct
Chloride
BUN
Glucose
Magnesium
POC Glucose 145 H 125 H
Antibody Screen Positive A
Crossmatch IS Only See Detail
MTS Gel Crossmatch See Detail
05/05/25 05/05/25 05/05/25
12:26 15:17 16:40
WBC
RBC
Hgb
Hct
Chloride
BUN
Glucose
Magnesium
POC Glucose 237 H 136 H 189 H
Antibody Screen
Crossmatch IS Only
MTS Gel Crossmatch
05/05/25 05/05/25 05/05/25
18:11 19:22 20:54
WBC
RBC
Hgb
Hct
Chloride
BUN
Glucose
Magnesium
POC Glucose 172 H 192 H 247 H
Antibody Screen
Crossmatch IS Only
MTS Gel Crossmatch
05/05/25 05/05/25 05/06/25
22:03 23:11 02:11
WBC 12.1 H
RBC 3.96 L
Hgb 11.3 L
Hct 34.1 L
Chloride 111 H
BUN 20 H
Glucose 62 L
Magnesium 2.4 H
POC Glucose 189 H 144 H
Antibody Screen
Crossmatch IS Only
MTS Gel Crossmatch
05/06/25 05/06/25
04:22 05:40
WBC
RBC
Hgb
Hct
Chloride
BUN
Glucose
Magnesium
POC Glucose 144 H 133 H
Antibody Screen
Crossmatch IS Only
MTS Gel Crossmatch
[2025-05-06] MEDS: TYLENOL PO (06:51)
[2025-05-06 07:16] LABS: Glucose - Point of Care 122 mg/dl (70-99)
--- NOTE | 2025-05-06 07:28 | PN.DE.MGMTRT ---
Insulin Management
- -
05/06/2025 Diabetes Management Consult Follow up
Patient admitted 04/30 with CP - 05/02 cardiac cath, 05/04 robotic MIDCABG x 1. PMH CAD, s/p stent 01/21, diabetes, myasthenia gravis with Thymectomy. Prior to admission was taking Farxiga 10 mg daily, 1000 mg metformin BID. A1C 6.8%, cr .5, eGFR > 60.
POD 2 s/p robotic CABG x 1. Patient is awake alert and oriented oob in chair, able to discuss diabetes care. Family at bedside very supportive. Patient states she sees an soda dialyzer. Has tried Mounjaro and Wegovy, but stopped due to side
effects.
received critical care glycemic protocol insulin infusion overnight, required at 2.3 to 10 units of insulin per hour. Will resume Farxiga 10 mg daily and metformin 1000mg BID this AM. Will continue insulin infusion until after lunch. In addition
to oral medication moderate corrective insulin is order AC to start with dinner.
Patient and family request dietitian consult.
Discussed with nurse.
Will follow.
Diabetes History
- -
Type of Diabetes: 2
Pre-Admission Diabetes Regimen
05/06/25
02:11
Creatinine 0.6
Lab Results
Hemoglobin A1c 6.8 % (4.0-5.6) H 05/01/25 08:07
Insulin Pump Settings
IP Diabetes Regimen
05/05/25 05/05/25 05/05/25
09:28 12:26 15:17
Glucose
POC Glucose 125 H 237 H 136 H
05/05/25 05/05/25 05/05/25
16:40 18:11 19:22
Glucose
POC Glucose 189 H 172 H 192 H
05/05/25 05/05/25 05/05/25
20:54 22:03 23:11
Glucose
POC Glucose 247 H 189 H 144 H
05/06/25 05/06/25 05/06/25
02:11 02:13 04:22
Glucose 62 L
POC Glucose 71 144 H
05/06/25 05/06/25
05:40 07:15
Glucose
POC Glucose 133 H 122 H
Meal type: Breakfast
Amount consumed: 75%
Patient Education
--- NOTE | 2025-05-06 08:00 | PTCARENOTE ---
assumed care of pt from previous RN. nancying rounds completed. pt A&Ox3. oob resting in chair at time of assessment. NSR on monitor. HR 70s. 93% on RA. +BS. BRP. all surgical sites, stable, CDI. R IJ cordis w/ KVO. PIV intact. will continue to
monitor.
[2025-05-06 08:21] VITALS: BP 140/75
[2025-05-06] MEDS: MAGNESIUM OXIDE 500 MG PO (09:08)
[2025-05-06] MEDS: CRESTOR 20 MG PO (09:09)
[2025-05-06] MEDS: NEURONTIN 100 MG PO (09:09)
[2025-05-06] MEDS: FARXIGA 10 MG PO (09:09)
[2025-05-06] MEDS: SENOKOT-S 1 TABLET PO (09:10)
[2025-05-06] MEDS: PROTONIX 40 MG PO (09:10)
[2025-05-06] MEDS: PLAVIX 75 MG PO (09:10)
[2025-05-06] MEDS: KCL 10 MEQ PO (09:12)
[2025-05-06] MEDS: GLUCOPHAGE 1000 MG PO (09:13)
[2025-05-06] MEDS: TOPROL XL 50 MG PO (09:14)
[2025-05-06] MEDS: LOW STRENGTH ASPIRIN 81 MG PO (09:15)
[2025-05-06] MEDS: PACERONE 200 MG PO (09:15)
[2025-05-06] MEDS: LASIX 40 MG PO (09:15)
[2025-05-06] MEDS: BACTROBAN 2% OINTMENT 1 APPLIC NASAL (09:16)
[2025-05-06] MEDS: NOVOLOG FLEXPEN 4 UNITS SC (09:17)
[2025-05-06 09:21] LABS: Glucose - Point of Care 95 mg/dl (70-99)
[2025-05-06] MEDS: LOPRESSOR PO (09:38)
--- NOTE | 2025-05-06 10:34 | W.DCSUMMARY ---
Discharge Summary
Discharge Data
Date of Admission: 04/30/25
Date of Discharge: 05/06/25
-
Pending Results: No
Hospital Course
Primary care physician: Dr. Don Gee
Outpatient structural architect: Dr. Malorie De Jesus
Inpatient consultants: [facility]
Procedures:
1. MIDCAB x 1 (FERRIS-LAD) with Dr. Bruce Mejia on 05/04/25
Primary Diagnosis:
1. CAD with NSTEMI, single vessel CAD (99% lesion to proximal LAD stent)
Secondary Diagnoses:
1. CAD status post LAD stent (2015 and December 2024 - on prasugrel)
2. Type 2 diabetes mellitus
3. Myasthenia gravis status post thymectomy in 1999
4. Hyperlipidemia
5. Right lower extremity vein stripping
HPI: Ms. Jayleen Cruz is a 60-year-old female with a past medical history significant for CAD i with prior stents to LAD in 2015 and December 2024 who was on DAPT therapy with aspirin 81 mg and prasugrel who presented to [facility] ED with complaints of
chest pain radiating to her arms and jaw. At that time, she reported doing well following her LAD stent in December 2024 until she began to enter increasing chest pain with activity over the last few weeks. Her chest pain was intermittently
alleviated with sublingual nitro prior to ED arrival. She ruled in as an NSTEMI in which left heart cath showed single-vessel CAD with 99% lesion to proximal LAD stent. Cardiac surgery was consulted in which she was recommended for MIDCAB x 1
(FERRIS to LAD), with Dr. Mejia. Leading to surgery she remained on a heparin and nitroglycerin infusions with Effient wash-out . While awaiting surgery, she developed 6 out of 10 chest pain refractory to increase medical support, with prior TEG
report of 8% inhibition. She was urgently taken to the operating room on 05/04/2025 and underwent MIDCAB X 1.
Hospital course: Ms. Jayleen Cruz is a 60-year-old female with a past medical history significant for CAD i with prior stents to LAD in 2015 and December 2024 who was on DAPT therapy with aspirin 81 mg and prasugrel who presented to [facility] ED with
complaints of chest pain radiating to her arms and jaw. At that time, she reported doing well following her LAD stent in December 2024 until she began to enter increasing chest pain with activity over the last few weeks. Her chest pain was
intermittently alleviated with sublingual nitro prior to ED arrival. She ruled in as an NSTEMI in which left heart cath showed single-vessel CAD with 99% lesion to proximal LAD stent. Cardiac surgery was consulted in which she was recommended for
MIDCAB x 1 (FERRIS to LAD), with Dr. Mejia. Leading to surgery she remained on a heparin and nitroglycerin infusions for Effient wash-out . While awaiting surgery, she developed 6 out of 10 chest pain refractory to increase medical support, with
prior TEG report of 8% inhibition. She was urgently taken to the operating room on 05/04/2025 and underwent MIDCAB X 1 (FERRIS-LAD) with Dr. Bruce Mejia. Please see surgeons record for complete dictation of surgery. In progressive fashion, vasopressor
support, central lines, and chest tube's were discontinued. An insulin drip was initiated following surgery until postoperative day 2 in which she transitioned to oral agents. The diabetic nurse practitioner was consulted in which her previous
regiment of metformin 1000 mg twice daily and Farxiga 10 mg daily was continued. On postoperative day 2, she was tolerating her diet, ambulating, and hemodynamically stable for discharge. Pain was well-controlled with a regimen of Tylenol
[id number], low-dose oxycodone as needed, gabapentin 100 mg three times daily for total for 8 days, and intermittent use of Flexeril 5 mg q8h PRN for muscle spasm. She was 1.6 kg above her admission weight with a discharge weight of 82.7 kg
from 81 kg at time of admission. She was sent home on daily Lasix 40 mg daily for 3 days with supplemental potassium. Patient was discharged home with plan to follow-up with Cardiac Surgery in 2-weeks following surgery. She will return to the CTS
office in 1-week for remaining chest tube suture removal. She was made a follow-up appointment with her primary cardiology team following discharge. She was recommended to follow-up with her primary care provider in 4 to 6 weeks from discharge.
Home medication changes:
- See list provided below.
Discharge Plan
-
Patient Disposition: Home (Routine Discharge)
Discharge Diagnosis/Procedures: MIDCAB x 1 (FERRIS-LAD) on 05/04/[address] Bruce Mejia
Condition: Good
Diet: Low Cholesterol, Low Sodium and Diabetic, Carb Controlled
Activity: No strenuous activity
Driving Restrictions: Not until seen by your Dr
Bathing Restrictions: OK to Shower
Other Services: Cardiac Rehab
Wound Care: No lotions, creams, or powders on procedural sites. Keep areas open to air. Shower daily with soap and water.
Specialty Instructions: Weigh Daily- Call MD for wt gain/loss 3 lbs overnight/5 lbs in 1 week
Activity Restrictions/Additional Instructions:
ACTIVITY:
-No strenuous activity: no heavy lifting, pushing, pulling anything over 15 pounds for one month
-continue to use stairs as tolerated
DRIVING RESTRICTIONS:
-No driving for one month or until approved by your surgeon
WOUND CARE:
-Shower daily. Use soap & water.
-No lotions, creams or powders on incision area.
DIET:
-continue a low fat/low cholesterol diet.
-IF you are diabetic, continue carb controlled diet.
CARDIAC REHAB:
- Please call [facility] cardiac rehab 4-6 weeks out when you are ready to be scheduled. P: [phone]
SPECIALTY INSTRUCTIONS:
-Weigh yourself daily. Call your physician for any weight gain/loss of 3 lbs overnight or 5 lbs in one week.
-REPORT any clicking noise or uneven appearance of your sternum to your surgeon immediately.
-If you smoke, you are instructed to quit. The [place] smoking hotline phone number is [phone]
Referrals:
PRIVATE,PHYSICIAN [Family Provider, Internal Medicine]
JESUS RYAN NP [Non-Admitting Privileges, Cardiology] - 06/06/25 11:00 am
Referral Note: [place] Office:
[address] [place] [address]
[place], [place] [address]
( )
Lacy De La Fuente CRNP [Specified Professional Personl, Cardiac Surgery] - 05/18/25 10:30 am
Referral Note: Additional Follow-up on 05/11/25 at 9:30 for chest tube suture removal.
Prescriptions:
New
cyclobenzaprine 10 mg Tablet
5 mg PO Q8HPRN PRN (Reason: muscle spasm) Qty: 14 0RF
acetaminophen 325 mg Tablet
650 mg PO Q6HPRN PRN (Reason: mild pain,headache,temp >101F ) Qty: 0 0RF
metoprolol succinate 50 mg Tablet Extended Release 24 Hr
50 mg PO DAILY Qty: 60 0RF
clopidogrel 75 mg Tablet
75 mg PO DAILY Qty: 60 0RF
furosemide 40 mg Tablet
40 mg PO DAILY Qty: 4 0RF
oxycodone 5 mg Tablet
2.5 - 5 mg PO Q6HPRN PRN (Reason: moderate pain) Qty: 10 0RF
potassium chloride 20 mEq tablet extended release
10 meq PO DAILY Qty: 4 0RF
sennosides-docusate sodium 8.6-50 mg Tablet
1 tab PO [id number] PRN (Reason: Constipation) Qty: 0 0RF
gabapentin 100 mg Capsule
100 mg PO TID 8 Days Qty: 24 0RF
Continued
metformin 500 mg Tablet Extended Release 24 Hr
1,000 mg PO BID@
therapeutic multivitamin Tablet
1 tab PO DAILY
aspirin 81 mg Tablet,Delayed Release (Dr/Ec)
81 mg PO DAILY
calcium carbonate-vitamin D3 [Calcium 500 + D] 500 mg-10 mcg (400 unit) Tablet
1 tab PO DAILY
coQ10 (ubiquinol) 100 mg Capsule
100 mg PO DAILY
icosapent ethyl [Vascepa] 1 gram Capsule
2 g PO BID
dapagliflozin propanediol [Farxiga] 10 mg tablet
10 mg PO DAILY
rosuvastatin 20 mg Tablet
20 mg PO DAILY 30 Days Qty: 30 0RF
Discontinued
prasugrel HCl 10 mg Tablet
10 mg PO DAILY Qty: 30 0RF
nitroglycerin 400 mcg/spray spray,non-aerosol
1 spray sublingual Q5MPRN PRN (Reason: Chest Pain)
Discharge Orders:
Discharge Patient (As Directed); Ordered 05/06/25
Ordered By: Paty Schuster
Care Plan Goals
Care Plan Goals:
Problem: Readiness for enhanced knowledge related to diagnosis and treatment plan
Goal: Understand your diagnosis and treatment plan needs, including medications if applicable.
Instructions: Know your diagnosis, underlying causes and treatment plan options, including medications if applicable. Consult with your health care team to learn about your diagnosis and treatment plan, including medications if applicable.
Discharge Date and Time
Print Language: MEXICAN
[2025-05-06 10:44] VITALS: BP 129/66
[2025-05-06 11:12] VITALS: BP 129/66; BP 130/75; PULSE 78; O2SAT 97
--- NOTE | 2025-05-06 11:54 | CM ---
Reviewed chart. Met with Mrs. Cruz to review discharge plans. She states she is feeling well and maybe able to go home soon. We reviewed VNA Services and she states she does not feel she will need VNA Services. Prior to admission she resides
with her spouse in a three story home with three steps to enter. She has a full flight of steps to get to bedroom/full bathroom.that she is using. She does have a bedroom and full bathroom on the first floor. Prior to admission she was independent
with ambulation and adls. She does not have any DME in the home. She has a prescription plan and uses [facility]. Her spouse will be home to assist in her care if needed. Medical work-up in progress. The discharge plan is to return home with
her spouse when medically stable.
[2025-05-06 13:23] LABS: Glucose - Point of Care 146 mg/dl (70-99)
[2025-05-06] MEDS: NOVOLOG FLEXPEN SC (13:26)
[2025-05-06] MEDS: TYLENOL 1000 MG PO (13:32)
[2025-05-06 13:36] VITALS: BP 130/73
[2025-05-06] MEDS: FERRLECIT IV (14:47)
--- NOTE | 2025-05-06 17:38 | W.PN.CD ---
Today's Communication / Plan
-
Agree with care
Discussed with her discussing with her cardiolgist checking Lp(a) and apo B after recovery
Impression / Plan
-
Background: 64-year-old female with CAD status post stenting, hyperlipidemia, type 2 diabetes, who is here for worsening chest pain and positive troponin.
ACS/NSTEMI with recurrent LAD CAD on [facility] 05/02
- recent stenting of the mid LAD now with recurrent severe disease proximally,. Patient underwent CABG FERRIS-LAD 05/05/25
- Hemodynamically stable and in sinus rhythm. ECG with anterior T wave inversions.
- Continue postoperative care directed by CT surgery
Hyperlipidemia
- Continue statin, eventual goal LDL<55
Type 2 diabetes
- Per primary
Subjective: Mild incisional discomfort
Physical Exam
Vital Signs/Labs
Vital Signs
Temp Pulse Resp BP Pulse Ox
97.8 F 72 18 130/73 94
05/06/25 12:00 05/06/25 15:00 05/06/25 12:00 05/06/25 13:36 05/06/25 12:00
05/05/25 05/06/25 05/07/25
06:59 06:59 06:59
Actual Weight 83.5 kg 82.7 kg
05/06/25 02:11
05/06/25 02:11
PT 14.6 Sec (11.4-14.6) 05/04/25 18:43
INR 1.09 05/04/25 18:43
APTT 99.6 Sec (23.4-35.0) H 05/04/25 10:45
Magnesium 2.4 mg/dl (1.6-2.3) H 05/06/25 02:11
Triglycerides 64 mg/dl (10-149) 05/01/25 08:07
LDL Cholesterol, Calc 16 mg/dl 05/01/25 08:07
VLDL Cholesterol, Calc 12 mg/dl (0-30) 05/01/25 08:07
HDL Cholesterol 59 mg/dl 05/01/25 08:07
LAB Results
05/04/25
12:26
Troponin I 0.150 H*
Physical Exam
Constitutional: No acute distress
EENT: Anicteric
Cardiovascular: Rhythm & rate is regular and Pedal edema is absent
Respiratory: Respiratory effort normal and Lungs clear to auscul.
Data Reviewed
-
Date of Service: May 06, 2025
== END 2025-05-06 18:00 | disposition home or self-care (01) | DRG 234 ==
LOC: CVICU 20:03
PROVIDERS: Hospitalist; Internal Medicine; Internal Medicine Cardiovascular Disease; Nurse Practitioner; Nurse Practitioner Gerontology; Physician Assistant Medical; Physician Assistant Surgical; Student in an Organized Health Care Education/Training Program; ADMITTING PHYSICIAN Internal Medicine; ATTENDING PHYSICIAN Thoracic Surgery (Cardiothoracic Vascular Surgery); CONSULT PHYSICIAN Internal Medicine Cardiovascular Disease; CONSULT PHYSICIAN Internal Medicine Critical Care Medicine; EMERGENCY PHYSICIAN Emergency Medicine
PROC: B2111ZZ Fluoroscopy of Multiple Coronary Arteries using Low Osmolar Contrast (ICD-10-PCS; 2025-05-02)
PROC: B2151ZZ Fluoroscopy of Left Heart using Low Osmolar Contrast (ICD-10-PCS; 2025-05-02)
PROC: 4A023N7 Measurement of Cardiac Sampling and Pressure, Left Heart, Percutaneous Approach (ICD-10-PCS; 2025-05-02)
PROC: 02100Z9 Bypass Coronary Artery, One Artery from Left Internal Mammary, Open Approach (ICD-10-PCS; 2025-05-04)
PROC: B24BZZ4 Ultrasonography of Heart with Aorta, Transesophageal (ICD-10-PCS; 2025-05-04)
PROC: 8E0W0CZ Robotic Assisted Procedure of Trunk Region, Open Approach (ICD-10-PCS; 2025-05-04)
DX: I21.4 Non-ST elevation (NSTEMI) myocardial infarction (principal); T82.855A Stenosis of coronary artery stent, initial encounter; D62 Acute posthemorrhagic anemia; I25.10 Atherosclerotic heart disease of native coronary artery without angina pectoris; E11.51 Type 2 diabetes mellitus with diabetic peripheral angiopathy without gangrene; E78.00 Pure hypercholesterolemia, unspecified; G70.00 Myasthenia gravis without (acute) exacerbation; E66.9 Obesity, unspecified; E11.65 Type 2 diabetes mellitus with hyperglycemia; F32.A Depression, unspecified; Y83.1 Surgical operation with implant of artificial internal device as the cause of abnormal reaction of the patient, or of later complication, without mention of misadventure at the time of the procedure; Z68.29 Body mass index [BMI] 29.0-29.9, adult; Z79.82 Long term (current) use of aspirin; Z79.84 Long term (current) use of oral hypoglycemic drugs; Z79.899 Other long term (current) drug therapy; Z82.49 Family history of ischemic heart disease and other diseases of the circulatory system; Z95.5 Presence of coronary angioplasty implant and graft; Z87.891 Personal history of nicotine dependence
CPT/HCPCS: 71045; 71046; 71250; 80048; 80053; 80061; 81003; 82248; 82330; 82565; 82805; 82947; 82962; 83036; 83735; 84132; 84302; 84484; 84520; 85014; 85018; 85025; 85027; 85049; 85610; 85730; 86850; 86870; 86900; 86901; 86902; 86905; 86920; 86922; 93005; 93306; 93458; 93880; 96361; 96365; 96366; 96367; 99152; 99153; 99291; C1894; J2916; Q9967

== ENCOUNTER 2025-08-22 16:58 | Outpatient (RCR) | payer MEDICARE, BC, SELFPAY ==
[2025-08-22 14:47] LABS: Glucose - Point of Care 118 mg/dl (70-99)
[2025-08-22 15:37] LABS: Glucose - Point of Care 126 mg/dl (70-99)
== END 2025-08-22 23:59 | disposition home or self-care (01) ==
LOC: CRHB 16:58
PROVIDERS: Internal Medicine Cardiovascular Disease; ATTENDING PHYSICIAN Internal Medicine Cardiovascular Disease
DX: I25.2 Old myocardial infarction (principal); Z95.1 Presence of aortocoronary bypass graft
CPT/HCPCS: 82962; G0422; G0423

== ENCOUNTER 2025-09-14 19:59 | Emergency (ER) | payer MEDICARE, BC, SELFPAY ==
[2025-09-14 20:09] VITALS: BP 137/76
[2025-09-14 20:38] LABS: Hematocrit 39.2 % (37.0-47.0); Hemoglobin 13.0 g/dL (12.0-16.0); Mean Corp Hgb Conc. 33.2 g/dL (33.0-37.0); Mean Corpuscular Volume 81.8 fL (81.0-99.0); Nucleated Red Blood Cells % 0 %; Platelet Count 340 10^3/uL (130-400); Red Cell Dist. Width 14.9 % (11.5-14.5)
[2025-09-14 20:57] LABS: ALT (SGPT) 23 U/L (0-35); AST (SGOT) 23 U/L (14-36); Albumin 4.9 g/dl (3.5-5.0); Alkaline Phosphatase 153 U/L (38-126); Blood Urea Nitrogen 28 mg/dl (7-17); Calcium 10.2 mg/dl (8.4-10.2); Carbon Dioxide 21 mmol/L (22-30); Chloride 103 mmol/L (98-107); Glucose 193 mg/dl (70-99); Potassium 4.3 mmol/L (3.5-5.1); Sodium 137 mmol/L (135-145); Total Protein 7.8 g/dl (6.3-8.2); Troponin I < 0.012 ng/ml; eGFR > 60.00
[2025-09-14 22:51] VITALS: BP 132/68
[2025-09-14 23:01] VITALS: BMI 28.5
--- NOTE | 2025-09-14 23:03 | ED.GENMED ---
History of Present Illness
General
Chief Complaint: Chest Pain
Source: patient
Exam Limitations: none
Time Seen by Provider: 09/14/25 22:40
Nursing documentation reviewed up to this point in time: agreed with
History of Present Illness
History of Present Illness:
65-year-old female with history of CAD, HLD, NIDDM, myasthenia gravis with thymus removal, cardiac cath with stent 2015, CABG 04/2025 for which she is still undergoing cardiac rehab, presents for mid chest pressure, aching, burning pain 01/06, waxing
and waning past 5 days. Today in cardiac rehab felt the same pain and states 'the 3 line EKG showed something funny.' they called her edge stitcher Dr. Vizcaino at [facility] and she made appointment for 9 a.m. tomorrow. She went home and later her
son in law gave her a NTG around 6 p.m. which she states did not help the pain. She states the discomfort is there 'a little' now. Denies n/v, sweating, lightheadedness. Denies radiation of the pain
Is on a 6 day Prednisone taper for cervical neck pain
Past History
Past History
ED Past Medical History: CAD, Hypercholesterolemia and NIDDM
ED Past Surgical History: Cardiac (Stent 2016, resstented 12/2024, CABG 04/2025), , Gynecological, Orthopedic and Tonsilectomy
Social History
Tobacco: Former smoker
Personal:
Living: with family
Employment: Retired
Review of Systems
Review of Systems
Allergies reviewed?: Yes
All Other Systems: ROS reviewed and negative except as documented in HPI and ROS
Phy Exam
Physical Exam
Physical Exam:
GENERAL: No acute distress. A&Ox3.
CONSTITUTIONAL: Afebrile.
EYES: clear, conjunctivae normal
ENMT: moist mucus membranes, Pharynx nl
RESPIRATORY: Regular respirations, nonlabored, lungs clear.
CARDIOVASCULAR: Regular rate and rhythm, no murmurs, no rubs.
GI: Soft, nontender, normal BS
MUSCULOSKELETAL: Moves with ease. Well perfused.Discomfort is reproducible with palpation over mid to left chest wall
SKIN: Warm, dry, pink
PSYCH: Normal mood and affect. Well kept, interactive and appropriate
NEUROLOGIC: Awake, alert and oriented. No focal neurological deficits
Scores
Heart Score for Chest Pain Patients
STEMI patient?: Not applicable
Course
Orders/Labs/Results
Orders:
Orders
09/14/25 20:01
EKG [Electrocardiogram (*1)] Urgent
Reason for Study: Chest Pain
09/14/25 20:02
EKG- Treatment ONCE
09/14/25 20:24
Complete Blood Count/With Diff Urgent
Comprehensive Metabolic Panel Urgent
Troponin I Urgent
09/14/25 23:23
Mag Hydrox/Al Hydrox/Simeth [Maalox] 30 ml Phenobarb/Hyoscy/Atropine/Scop [] 10 ml Viscous Lidocaine 2% [Xylocaine Viscous Cup] 10 ml PO NOW
09/14/25 23:26
Mag Hydrox/Al Hydrox/Simeth [Maalox] 30 ml .ROUTE .STK-MED ONE
Phenobarb/Hyoscy/Atropine/Scop [] 10 ml .ROUTE .STK-MED ONE
09/14/25 23:27
Viscous Lidocaine 2% [Xylocaine Viscous Cup] 15 ml .ROUTE .STK-MED ONE
Abnormal Lab Results
09/14/25
20:24
RDW 14.9 H %
(11.5-14.5)
Absolute Lymphs (auto) 0.9 L 10^3/uL
(1.2-3.4)
Neutrophils % 82.3 H %
(42.2-75.2)
Lymphocytes % 12.7 L %
(20.5-51.1)
Carbon Dioxide 21 L mmol/L
(22-30)
BUN 28 H mg/dl
(7-17)
Glucose 193 H mg/dl
(70-99)
Alkaline Phosphatase 153 H U/L
(38-126)
09/14/25 20:24
09/14/25 20:24
Vital Signs
Initial and Last Documented VS:
Initial Vital Signs
Temp Pulse Resp BP Pulse Ox
98.4 F 88 16 137/76 97
09/14/25 20:09 09/14/25 20:09 09/14/25 20:09 09/14/25 20:09 09/14/25 20:09
Last Documented Vital Signs
Temp Pulse Resp BP Pulse Ox
98.4 F 68 23 132/76 96
09/14/25 20:09 09/15/25 00:00 09/15/25 00:00 09/15/25 00:00 09/14/25 23:45
MDM/Problems Addressed
Differential Diagnosis Includes:
ACS, unstable angina, GERD, musculoskeletal pain
MDM/Problems Addressed:
65-year-old female with history of CAD, HLD, NIDDM, myasthenia gravis with thymus removal, cardiac cath with stent 2015, CABG 04/2025 for which she is still undergoing cardiac rehab, presents for mid chest pressure, aching, burning pain 4/10, waxing
and waning past 5 days. Today in cardiac rehab felt the same pain and states 'the 3 line EKG showed something funny.' they called her edge stitcher Dr. Vizcaino at [facility] and she made appointment for 9 a.m. tomorrow. She went home and later her
son in law gave her a NTG around 6 p.m. which she states did not help the pain. She states the discomfort is there 'a little' now. Denies n/v, sweating, lightheadedness. Denies radiation of the pain
Is on a 6 day Prednisone taper for cervical neck pain
EKG NSR
Labs unremarkable including normal Troponin which is reassuring as she's had symptoms for 5 days
Pain is reproducible with compression of chest wall. Pt now recalls she fell on Thanksgiving injuring her right hip and has been using her left arm much more to pull herself up the steps, etc and agrees this could be muscular pain.
She will see her edge stitcher tomorrow.
No improvement with GI cocktail
No indication that pain is cardiac related
*Pulse Oximetry
SaO2: 97
Oxygen Mode of Delivery: Room air
Patient hypoxic: no
*Critical Care Note
Total Time (30-74mins, 75-104mins- exclusive of procedures): Not Applicable
ED Attending Note
-
Portions of this chart may have been created with voice recognition software.� Occasional wrong word or��sound alike� substitutions may have occurred due to the inherent limitations of voice recognition software.
Discharge Plan
Departure
Patient Disposition: Home (Routine Discharge)
Date of Disposition: 09/14/25
Time of Disposition: 23:54
Patient with high blood pressure during this ER visit?: No
Condition: Good
Discharge Problem:
Atypical chest pain
Instructions: Chest Pain That Is Not Caused by the Heart (DC)
Prescriptions:
No Action
metformin 500 mg Tablet Extended Release 24 Hr
1,000 mg PO BID@
therapeutic multivitamin Tablet
1 tab PO DAILY
aspirin 81 mg Tablet,Delayed Release (Dr/Ec)
81 mg PO DAILY
calcium carbonate-vitamin D3 [Calcium 500 + D] 500 mg-10 mcg (400 unit) Tablet
1 tab PO DAILY
coQ10 (ubiquinol) 100 mg Capsule
100 mg PO DAILY
icosapent ethyl [Vascepa] 1 gram Capsule
2 g PO BID
dapagliflozin propanediol [Farxiga] 10 mg tablet
10 mg PO DAILY
rosuvastatin 20 mg Tablet
20 mg PO DAILY 30 Days Qty: 30 0RF
cyclobenzaprine 10 mg Tablet
5 mg PO Q8HPRN PRN (Reason: muscle spasm) Qty: 14 0RF
acetaminophen 325 mg Tablet
650 mg PO Q6HPRN PRN (Reason: mild pain,headache,temp >101F ) Qty: 0 0RF
metoprolol succinate 50 mg Tablet Extended Release 24 Hr
50 mg PO DAILY Qty: 60 0RF
clopidogrel 75 mg Tablet
75 mg PO DAILY Qty: 60 0RF
furosemide 40 mg Tablet
40 mg PO DAILY Qty: 4 0RF
oxycodone 5 mg Tablet
2.5 - 5 mg PO Q6HPRN PRN (Reason: moderate pain) Qty: 10 0RF
potassium chloride 20 mEq tablet extended release
10 meq PO DAILY Qty: 4 0RF
sennosides-docusate sodium 8.6-50 mg Tablet
1 tab PO [id number] PRN (Reason: Constipation) Qty: 0 0RF
gabapentin 100 mg Capsule
100 mg PO TID 8 Days Qty: 24 0RF
Referrals:
Malorie Vizcaino MD [Non-Admitting Privileges, Cardiology] - Tomorrow
Don Gee MD [Family Provider]
Activity Restrictions/Additional Instructions:
As we discussed, nothing worrisome in your workup here today, specifically no sign of a heart attack.
Keep your appointment with your edge stitcher tomorrow
This may be musculoskeletal pain as we discussed
Interventions
Interventions:
*General Assessment Last Done: 09/14/25 20:09
*Neglect/Abuse Screening Last Done: 09/14/25 20:09
*ED COVID-19 Vaccine History Last Done: 09/14/25 23:02
*ED Influenza Vaccine History Last Done: 09/14/25 23:02
[facility] Risk Assessment Tool Last Done: 09/14/25 19:59
*Risk Screen - Suicide (C-SSRS) Last Done: 09/14/25 20:09
*Nursing Disposition Last Done: 09/15/25 00:03
ED- Cardiac Assessment Last Done: 09/14/25 23:01
Discharge Date and Time
Print Language: BURUNDIAN
[2025-09-14] MEDS: MAALOX 50 PO (23:27)
[2025-09-15] VITALS: BP 132/76
== END 2025-09-15 00:03 | disposition home or self-care (01) ==
LOC: EMR 19:59
PROVIDERS: Emergency Medicine; EMERGENCY PHYSICIAN Emergency Medicine; FAMILY PHYSICIAN Family Medicine; REFERRING PHYSICIAN Internal Medicine Cardiovascular Disease
DX: R07.89 Other chest pain (principal); E11.9 Type 2 diabetes mellitus without complications; I25.810 Atherosclerosis of coronary artery bypass graft(s) without angina pectoris; E78.00 Pure hypercholesterolemia, unspecified; G70.00 Myasthenia gravis without (acute) exacerbation; Z79.84 Long term (current) use of oral hypoglycemic drugs; Z79.82 Long term (current) use of aspirin; Z79.02 Long term (current) use of antithrombotics/antiplatelets; Z95.1 Presence of aortocoronary bypass graft; Z95.5 Presence of coronary angioplasty implant and graft; Z87.891 Personal history of nicotine dependence
CPT/HCPCS: 99284; 80053; 84484; 85025; 93005; G0422; G0423

== ENCOUNTER 2025-09-26 14:18 | Outpatient (RCR) | payer MEDICARE, BC, SELFPAY ==
[2025-08-29 13:14] LABS: Glucose - Point of Care 177 mg/dl (70-99)
[2025-08-29 14:02] LABS: Glucose - Point of Care 142 mg/dl (70-99)
[2025-08-31 13:22] LABS: Glucose - Point of Care 136 mg/dl (70-99)
[2025-08-31 13:55] LABS: Glucose - Point of Care 129 mg/dl (70-99)
[2025-09-02 13:10] LABS: Glucose - Point of Care 160 mg/dl (70-99)
[2025-09-02 13:59] LABS: Glucose - Point of Care 126 mg/dl (70-99)
[2025-09-07 13:05] LABS: Glucose - Point of Care 134 mg/dl (70-99)
[2025-09-07 14:06] LABS: Glucose - Point of Care 113 mg/dl (70-99)
[2025-09-09 13:11] LABS: Glucose - Point of Care 134 mg/dl (70-99)
[2025-09-09 14:06] LABS: Glucose - Point of Care 134 mg/dl (70-99)
== END 2025-09-26 23:59 | disposition home or self-care (01) ==
LOC: CRHB 14:18
PROVIDERS: ATTENDING PHYSICIAN Internal Medicine Cardiovascular Disease
DX: I25.10 Atherosclerotic heart disease of native coronary artery without angina pectoris (principal); I21.4 Non-ST elevation (NSTEMI) myocardial infarction; Z95.1 Presence of aortocoronary bypass graft; I25.2 Old myocardial infarction
CPT/HCPCS: 82962; G0422; G0423